=== PATIENT | male | born 1940 | race Caucasian/White ===

== ENCOUNTER 2019-03-23 13:09 | Inpatient (IN) | payer MEDICARE, OTHER ==
[~2019-03-23] VITALS: Ht 172.7 cm; Wt 80.7 kg
[~2019-03-23 13:09] MED LIST: ASPI-630 PO; CARV6.25 PO; CLOP75TA PO; COLC0.6T34 PO; HYDR-2761 PO; LEVO250T7 PO; LEVO500T8 PO; LISI1TAB5 PO; METH4TAB PO; METR500T PO; OMEP20TA8 PO; PRED1TAB3 PO; PRIM50TA PO; VIT1CAPS7 PO
[2019-03-23] MEDS ORDERED: ASPIRIN CHEWABLE 81 MG TABLET. PO ONE (14:15)
--- NOTE | 2019-03-23 14:16 | PHYS DOC ---
Past Medical History Past Medical History: High Cholesterol, Hypertension, Other Additional Past Medical Histor: TREMORS, STROKE x 2 (L side) Past Surgical History: Other Additional Past Surgical Histo: ABD SURGERY Alcohol Use: Rarely Drug Use: None Adult General Chief Complaint Chief Complaint: DIZZY/LIGHT HEADED HPI HPI Patient is a 78 year old male who presents with near-syncope. Patient states around 9 AM this morning that he started feeling extremely dizzy and having a weird tingling down his left arm that he describes as feeling goofy. Also had a headache that accompanied it. States that he has been having dizziness intermittently gets better with rest however this dizziness was severe enough that scared him. States he is in no pain at the moment. Did not take anything prior to arrival to help. Review of Systems Review of Systems Constitutional: Denies fever or chills [] Eyes: Denies change in visual acuity, redness, or eye pain [] HENT: Denies nasal congestion or sore throat [] Respiratory: Denies cough or shortness of breath [] Cardiovascular: Denies chest pain but reports dizziness. GI: Denies abdominal pain, nausea, vomiting, bloody stools or diarrhea [] : Denies dysuria or hematuria but reports urinary frequency. Musculoskeletal: Denies back pain or joint pain [] Integument: Denies rash or skin lesions [] Neurologic: Reports headache and denies focal weakness or sensory changes with the exception of tingling down left arm. Endocrine: Denies polyuria or polydipsia [] Complete systems were reviewed and found to be within normal limits, except as documented in this note. Current Medications Current Medications Current Medications Medications (Trade) Dose Ordered Sig/Lucy Start Time Stop Time Status Last Admin Dose Admin Aspirin (Children'S Aspirin) 324 mg 1X ONCE 03/23/19 14:15 03/23/19 14:16 DC 03/23/19 14:47 324 MG Sodium Chloride 500 ml @ 500 mls/hr 1X ONCE 03/23/19 14:30 03/23/19 15:29 DC 03/23/19 14:48 500 MLS/HR Allergies Allergies Allergies Coded Allergies Type Severity Reaction Last Updated Verified No Known Drug Allergies 10/20/18 No Physical Exam Physical Exam Constitutional: Well developed, well nourished, no acute distress, non-toxic appearance. [] HENT: Normocephalic, atraumatic, bilateral external ears normal, oropharynx moist, no oral exudates, nose normal. [] Eyes: PERRLA, EOMI, conjunctiva normal, no discharge. [] Neck: Normal range of motion, no tenderness, supple, no stridor. [] Cardiovascular:Heart rate regular rhythm, no murmur [] Lungs & Thorax: Bilateral breath sounds clear to auscultation [] Abdomen: Soft, no tenderness, no masses, no pulsatile masses. [] Skin: Warm, dry, no erythema, no rash. [] Back: No tenderness, no CVA tenderness. [] Extremities: No tenderness, no cyanosis, no clubbing, ROM intact, no edema. [] Neurologic: Alert and oriented X 3, no focal deficits noted. [] Psychologic: Affect normal, judgement normal, mood normal. [] Current Patient Data Vital Signs Vital Signs Date Time Temp Pulse Resp B/P (MAP) Pulse Ox O2 Delivery O2 Flow Rate FiO2 03/23/19 14:05 98.2 84 20 138/85 (102) 96 Room Air 98.2 Lab Values Laboratory Tests Test 03/23/19 14:10 White Blood Count 8.6 x10^3/uL (4.0-11.0) Red Blood Count 4.45 x10^6/uL (4.30-5.70) Hemoglobin 14.4 g/dL (13.0-17.5) Hematocrit 41.8 % (39.0-53.0) Mean Corpuscular Volume 94 fL (79-100) Mean Corpuscular Hemoglobin 32 pg (25-35) Mean Corpuscular Hemoglobin Concent 35 g/dL (31-37) Red Cell Distribution Width 13.3 % (11.5-14.5) Platelet Count 255 x10^3/uL (140-400) Neutrophils (%) (Auto) 64 % (31-73) Lymphocytes (%) (Auto) 26 % (24-48) Monocytes (%) (Auto) 7 % (0-9) Eosinophils (%) (Auto) 3 % (0-3) Basophils (%) (Auto) 1 % (0-3) Neutrophils # (Auto) 5.5 x10^3uL (1.8-7.7) Lymphocytes # (Auto) 2.2 x10^3/uL (1.0-4.8) Monocytes # (Auto) 0.6 x10^3/uL (0.0-1.1) Eosinophils # (Auto) 0.2 x10^3/uL (0.0-0.7) Basophils # (Auto) 0.1 x10^3/uL (0.0-0.2) Sodium Level 137 mmol/L (136-145) Potassium Level 4.1 mmol/L (3.5-5.1) Chloride Level 100 mmol/L (98-107) Carbon Dioxide Level 26 mmol/L (21-32) Anion Gap 11 (6-14) Blood Urea Nitrogen 20 mg/dL (8-26) Creatinine 1.5 mg/dL (0.7-1.3) H Estimated GFR (Cockcroft-Gault) 45.3 BUN/Creatinine Ratio 13 (6-20) Glucose Level 141 mg/dL (70-99) H Calcium Level 9.3 mg/dL (8.5-10.1) Magnesium Level 1.9 mg/dL (1.8-2.4) Total Bilirubin 0.6 mg/dL (0.2-1.0) Aspartate Amino Transferase (AST) 18 U/L (15-37) Alanine Aminotransferase (ALT) 22 U/L (16-63) Alkaline Phosphatase 109 U/L (46-116) Troponin I Quantitative < 0.017 ng/mL (0.000-0.055) Total Protein 7.3 g/dL (6.4-8.2) Albumin 4.0 g/dL (3.4-5.0) Albumin/Globulin Ratio 1.2 (1.0-1.7) Laboratory Tests 03/23/19 14:10 Laboratory Tests 03/23/19 14:10 EKG EKG Interpreted by Dr. Cecelia MD Sinus Rhythm with rate of 79. No STEMI[] Radiology/Procedures Radiology/Procedures []PATIENT: AIDA DICKERSON LACCOUNT: [id number]#: [id number] : 1940 LOCATION: ER AGE: 78 SEX: M EXAM STATUS: REG ER ORD. PHYSICIAN: JUDSON GR APRN REASON: dizziness PROCEDURE: CT HEAD WO CONTRAST CT HEAD WO CONTRAST History: Dizziness Comparison: October 20, 2018 Technique: Noncontrast CT imaging was performed of the head. Exposure: One or more of the following individualized dose reduction techniques were utilized for this examination: 1. Automated exposure control 2. Adjustment of the mA and/or kV according to patient size 3. Use of iterative reconstruction technique. Findings: No acute extra-axial or parenchymal hemorrhage is identified. There is no significant intra-axial mass effect, midline shift, or extra-axial fluid collection. The kirkland-white differentiation of the major vascular territories is preserved. Ventricular size is stable and proportionate to sulcal spaces. 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 There is mild ill-defined low-density such as near the left frontal horn unchanged. There is atherosclerotic calcification carotid siphons and intradural vertebral arteries as well as basilar artery. The mastoid air cells and the visualized paranasal sinuses are aerated. No acute calvarial abnormality is identified. Impression: 1. No acute intracranial abnormality is identified. 2. 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 Electronically signed by: Vlad Montero MD (03/23/2019 2:46 PM) [facility] PATIENT: AIDA DICKERSON ACCOUNT: [id number] : 1940 LOCATION: ER AGE: 78 SEX: M EXAM STATUS: REG ER ORD. PHYSICIAN: JUDSON GR APRN REASON: near syncope PROCEDURE: CHEST PA & LATERAL Chest, PA and Lateral: Technique: PA and lateral views of the chest were obtained. History: Near syncope. Comparison: 10/20/2018. Findings: The heart and pulmonary vasculature appear within normal limits. The lungs are clear. The pleural margins are clear. Impression: No acute chest process is seen. Electronically signed by: Deshaun Rowe MD (03/23/2019 2:59 PM) [facility] Course & Med Decision Making Course & Med Decision Making Pertinent Labs and Imaging studies reviewed. (See chart for details) Discussed signs and symptoms with patient. Will gets labs/urine, give fluid, and obtain CT of the Head, and Chest x-ray as well as EKG. Patient is agreeable. Work up is inconclusive. Labs are unremarkable as well as chest x-ray, Will talk to hospitalist about hospital admission. Hospitalist agrees to admission. Will admit to hospital. Dragon Disclaimer Dragon Disclaimer This electronic medical record was generated, in whole or in part, using a voice recognition dictation system. Departure Departure Impression: Primary Impression: Atypical chest pain Additional Impression: Dizziness Disposition: 09 ADMITTED INPATIENT Condition: STABLE Referrals: MARTY NG (PCP) Problem Qualifiers JUDSON GR APRN March 23, 2019 14:16
[2019-03-23 14:24] LABS: BASO # 0.1 x10^3/uL (0.0-0.2); BASO % 1 % (0-3); EOS # 0.2 x10^3/uL (0.0-0.7); EOS % 3 % (0-3); HEMATOCRIT 41.8 % (39.0-53.0); HEMOGLOBIN 14.4 g/dL (13.0-17.5); LYMPH # 2.2 x10^3/uL (1.0-4.8); LYMPH % 26 % (24-48); MEAN CORPUSCULAR HEMOGLOBIN 32 pg (25-35); MEAN CORPUSCULAR HGB CONC 35 g/dL (31-37); MEAN CORPUSCULAR VOLUME 94 fL (79-100); MONO # 0.6 x10^3/uL (0.0-1.1); MONO % 7 % (0-9); NEUT # 5.5 x10^3uL (1.8-7.7); NEUT % 64 % (31-73); PLATELET COUNT 255 x10^3/uL (140-400); RED BLOOD COUNT 4.45 x10^6/uL (4.30-5.70); RED CELL DISTRIBUTION WIDTH 13.3 % (11.5-14.5); WHITE BLOOD COUNT 8.6 x10^3/uL (4.0-11.0)
--- NOTE | 2019-03-23 14:25 | EKG ---
[facility] [address] [place] [address] Test Date: 2019-03-23 Test Time: 14:12:54 Pat Name: AIDA DICKERSON Department: Room: Gender: M Physician Surgeon: : 1940 Requested By: JUDSON GR Order Number: [id number] Reading MD: Rafael Lamas Measurements Intervals [place] Rate: 79 P: -59 NC: 154 QRS: -11 QRSD: 64 T: 16 QT: 370 QTc: 425 Interpretive Statements SINUS RHYTHM LEFTWARD AXIS QRS(T) CONTOUR ABNORMALITY CONSISTENT WITH INFERIOR INFARCT PROBABLY OLD ABNORMAL ECG Electronically Signed On 04-16-2019 11:48:37 CDT by Rafael Lamas
[2019-03-23] MEDS ORDERED: IV NORMAL SALINE 500ML BAG 500 ML IV ONE (14:30)
[2019-03-23 14:49] LABS: CALCIUM 9.3 mg/dL (8.5-10.1); CREATININE 1.5 mg/dL (0.7-1.3); GFR 45.3; POTASSIUM 4.1 mmol/L (3.5-5.1)
--- NOTE | 2019-03-23 14:49 | RAD ---
CT HEAD WO CONTRAST History: Dizziness Comparison: October 20, 2018 Technique: Noncontrast CT imaging was performed of the head. Exposure: One or more of the following individualized dose reduction techniques were utilized for this examination: 1. Automated exposure control 2. Adjustment of the mA and/or kV according to patient size 3. Use of iterative reconstruction technique. Findings: No acute extra-axial or parenchymal hemorrhage is identified. There is no significant intra-axial mass effect, midline shift, or extra-axial fluid collection. The kirkland-white differentiation of the major vascular territories is preserved. Ventricular size is stable and proportionate to sulcal spaces. 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 There is mild ill-defined low-density such as near the left frontal horn unchanged. There is atherosclerotic calcification carotid siphons and intradural vertebral arteries as well as basilar artery. The mastoid air cells and the visualized paranasal sinuses are aerated. No acute calvarial abnormality is identified. Impression: 1. No acute intracranial abnormality is identified. 2. 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 Electronically signed by: Vlad Montero MD (03/23/2019 2:46 PM) [facility]
[2019-03-23 14:56] LABS: ALBUMIN/GLOBULIN RATIO 1.2 (1.0-1.7); MAGNESIUM 1.9 mg/dL (1.8-2.4); TOTAL BILIRUBIN 0.6 mg/dL (0.2-1.0); TOTAL PROTEIN 7.3 g/dL (6.4-8.2)
--- NOTE | 2019-03-23 15:02 | RAD ---
Chest, PA and Lateral: Technique: PA and lateral views of the chest were obtained. History: Near syncope. Comparison: 10/20/2018. Findings: The heart and pulmonary vasculature appear within normal limits. The lungs are clear. The pleural margins are clear. Impression: No acute chest process is seen. Electronically signed by: Deshaun Rowe MD (03/23/2019 2:59 PM) [place] [id number]
[2019-03-23] MEDS ORDERED: NITROGLYCERIN SUBLINGUAL 0.4 MG BOTTLE OF 25. SL PRN (16:00)
[2019-03-23] MEDS ORDERED: ONDANSETRON PF 4 MG/2 ML VIAL. IV PRN (16:00)
[2019-03-23] MEDS ORDERED: MORPHINE SULFATE 2 MG/ML VIAL. IV PRN (16:00)
[2019-03-23 16:55] VITALS: BP 117/73
[2019-03-23 17:00] VITALS: BP 125/68
[2019-03-23 17:04] VITALS: BP 92/59
--- NOTE | 2019-03-23 17:59 | PDOC1 ---
History and Physical Date of Admission Date of Admission DATE: 03/23/19 TIME: 17:53 History of Present Illness History of Present Illness MR. Ahmadi is a 78 year old male admt from with near-syncope. 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 He would maybe say the left arm was heavy or weak Also had a headache that accompanied it. 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 Past Medical History Cardiovascular: HTN CENTRAL NERVOUS SYSTEM: CVA GI: GERD, Other Past Surgical History Past Surgical History: Cholecystectomy, Other Family History Family History: No Significant Social History Smoke: Quit (cl[place] 2001) ALCOHOL: none Drugs: None Current Problem List Problem List Problems Medical Problems: (1) Atypical chest pain Status: Acute (2) Dizziness Status: Acute Current Medications Current Medications Current Medications Aspirin (Children'S Aspirin) 324 mg 1X ONCE PO Last administered on 03/23/19at 14:47; Start 03/23/19 at 14:15; Stop 03/23/19 at 14:16; Status DC Sodium Chloride 500 ml @ 500 mls/hr 1X ONCE IV Last administered on 03/23/19at 14:48; Start 03/23/19 at 14:30; Stop 03/23/19 at 15:29; Status DC Ondansetron HCl (Zofran) 4 mg PRN Q8HRS PRN IV NAUSEA/VOMITING; Start 03/23/19 at 16:00; Stop 03/24/19 at 15:59 Morphine Sulfate (Morphine Sulfate) 2 mg PRN Q2HR PRN IV PAIN; Start 03/23/19 at 16:00; Stop 03/24/19 at 15:59 Nitroglycerin (Nitrostat) 0.4 mg PRN Q5MIN PRN SL CHEST PAIN; Start 03/23/19 at 16:00; Stop 03/24/19 at 15:59 Active Scripts Active Clopidogrel (Clopidogrel Bisulfate) 75 Mg Tablet 75 Mg PO DAILYWBKFT MDD 1 Colcrys (Colchicine) 0.6 Mg Tablet 1 Tab PO DAILY Medrol (Methylprednisolone) 4 Mg Tablet 7 Cap PO UD Reported Aspirin 81 Mg Tab.chew 1 Tab PO DAILY Primidone 50 Mg Tablet 150 Mg PO DAILY Tart Sanders Capsule (Vit C/Sanders & Celery Ex/Grp E) 1 Each Capsule 2 Each PO DAILY Omeprazole 20 Mg Tablet.dr 1 Tab PO DAILY Lisinopril-Hctz 20-12.5 Mg Tab (Lisinopril/Hydrochlorothiazide) 1 Each Tablet 1 Tab PO DAILY Coreg (Carvedilol) 6.25 Mg Tablet 6.25 Mg PO BIDWMEALS Prednisone 1 Mg Tablet 4 Tab PO DAILY Allergies Allergies: Coded Allergies: No Known Drug Allergies (Unverified , 10/20/18) ROS General: No: Chills, Night Sweats, Fatigue, Malaise, Appetite, Other PSYCHOLOGICAL ROS: No: Anxiety, Behavioral Disorder, Concentration difficultie, Decreased libido, Depression, Disorientation, Hallucinations, Hostility, Irritablity, Memory difficulties, Mood Swings, Obsessive thoughts, Physical abuse, Sexual abuse, Sleep disturbances, Suicidal ideation, Other Eyes: No Blurry vision, No Decreased vision, No Double vision, No Dry eyes, No Excessive tearing, No Eye Pain, No Itchy Eyes, No Loss of vision, No Photophobia, No Scotomata, No Uses contacts, No Uses glasses, No Other HEENT: No: Heacaches, Visual Changes, Hearing change, Nasal congestion, Nasal discharge, Oral lesions, Sinus pain, Sore Throat, Epistaxis, Sneezing, Snoring, Tinnitus, Vertigo, Vocal changes, Other Respiratory: No: Cough, Hemoptysis, Orthopnea, Pleuritic Pain, Shortness of breath, SOB with excertion, Sputum Changes, Stridor, Tachypnea, Wheezing, Other Cardiovascular: No Chest Pain, No Palpitations, No Orthopnea, No Paroxysmal Noc. Dyspnea, No Edema, No Lt Headedness, No Other Gastrointestinal: No Nausea, No Vomiting, No Abdominal Pain, No Diarrhea, No Constipation, No Melena, No Hematochezia, No Other Genitourinary: No Dysuria, No Frequency, No Incontinence, No Hematuria, No Rete ntion, No Discharge, No Urgency, No Pain, No Flank Pain, No Other, No , No , No , No , No , No , No Musculoskeletal: Yes Muscular Weakness (left ); No Gait Disturbance, No Joint Pain, No Joint Stiffness, No Joint Swelling, No Muscle Pain, No Pain In:, No Swelling In:, No Other Neurological: No Behavorial Changes, No Bowel/Bladder ControlChng, No Confusion, No Dizziness, No Gait Disturbance, No Headaches, No Impaired Coord/balance, No Memory Loss, No Numbness/Tingling, No Seizures, No Speech Problems, No Tremors, No Visual Changes, No Weakness, No Other Skin: Yes Dry Skin; No Eczema, No Hair Changes, No Lumps, No Mole Changes, No Mottling, No Nail Changes, No Pruritus, No Rash, No Skin Lesion Changes, No Other, No Acne Physical Exam General: Alert, Oriented X3, No acute distress HEENT: Atraumatic, PERRLA, Mucous membr. moist/pink Lungs: Clear to auscultation, Normal air movement Heart: no gallops, no murmurs Extremities: No edema, Normal pulses Skin: No significant lesion Neuro: Normal speech, Sensation intact, Other (brisk left reflexes, normal right) Psych/Mental Status: Mental status NL, Mood NL Vitals Vitals Vital Signs Date Time Temp Pulse Resp B/P (MAP) Pulse Ox O2 Delivery O2 Flow Rate FiO2 03/23/19 16:00 62 20 95 03/23/19 14:05 98.2 138/85 (102) Room Air 98.2 Labs Labs Laboratory Tests Test 03/23/19 14:10 White Blood Count 8.6 x10^3/uL (4.0-11.0) Red Blood Count 4.45 x10^6/uL (4.30-5.70) Hemoglobin 14.4 g/dL (13.0-17.5) Hematocrit 41.8 % (39.0-53.0) Mean Corpuscular Volume 94 fL (79-100) Mean Corpuscular Hemoglobin 32 pg (25-35) Mean Corpuscular Hemoglobin Concent 35 g/dL (31-37) Red Cell Distribution Width 13.3 % (11.5-14.5) Platelet Count 255 x10^3/uL (140-400) Neutrophils (%) (Auto) 64 % (31-73) Lymphocytes (%) (Auto) 26 % (24-48) Monocytes (%) (Auto) 7 % (0-9) Eosinophils (%) (Auto) 3 % (0-3) Basophils (%) (Auto) 1 % (0-3) Neutrophils # (Auto) 5.5 x10^3uL (1.8-7.7) Lymphocytes # (Auto) 2.2 x10^3/uL (1.0-4.8) Monocytes # (Auto) 0.6 x10^3/uL (0.0-1.1) Eosinophils # (Auto) 0.2 x10^3/uL (0.0-0.7) Basophils # (Auto) 0.1 x10^3/uL (0.0-0.2) Sodium Level 137 mmol/L (136-145) Potassium Level 4.1 mmol/L (3.5-5.1) Chloride Level 100 mmol/L (98-107) Carbon Dioxide Level 26 mmol/L (21-32) Anion Gap 11 (6-14) Blood Urea Nitrogen 20 mg/dL (8-26) Creatinine 1.5 mg/dL (0.7-1.3) Estimated GFR (Cockcroft-Gault) 45.3 BUN/Creatinine Ratio 13 (6-20) Glucose Level 141 mg/dL (70-99) Calcium Level 9.3 mg/dL (8.5-10.1) Magnesium Level 1.9 mg/dL (1.8-2.4) Total Bilirubin 0.6 mg/dL (0.2-1.0) Aspartate Amino Transf (AST/SGOT) 18 U/L (15-37) Alanine Aminotransferase (ALT/SGPT) 22 U/L (16-63) Alkaline Phosphatase 109 U/L (46-116) Troponin I Quantitative < 0.017 ng/mL (0.000-0.055) Total Protein 7.3 g/dL (6.4-8.2) Albumin 4.0 g/dL (3.4-5.0) Albumin/Globulin Ratio 1.2 (1.0-1.7) Laboratory Tests Test 03/23/19 14:10 White Blood Count 8.6 x10^3/uL (4.0-11.0) Red Blood Count 4.45 x10^6/uL (4.30-5.70) Hemoglobin 14.4 g/dL (13.0-17.5) Hematocrit 41.8 % (39.0-53.0) Mean Corpuscular Volume 94 fL (79-100) Mean Corpuscular Hemoglobin 32 pg (25-35) Mean Corpuscular Hemoglobin Concent 35 g/dL (31-37) Red Cell Distribution Width 13.3 % (11.5-14.5) Platelet Count 255 x10^3/uL (140-400) Neutrophils (%) (Auto) 64 % (31-73) Lymphocytes (%) (Auto) 26 % (24-48) Monocytes (%) (Auto) 7 % (0-9) Eosinophils (%) (Auto) 3 % (0-3) Basophils (%) (Auto) 1 % (0-3) Neutrophils # (Auto) 5.5 x10^3uL (1.8-7.7) Lymphocytes # (Auto) 2.2 x10^3/uL (1.0-4.8) Monocytes # (Auto) 0.6 x10^3/uL (0.0-1.1) Eosinophils # (Auto) 0.2 x10^3/uL (0.0-0.7) Basophils # (Auto) 0.1 x10^3/uL (0.0-0.2) Sodium Level 137 mmol/L (136-145) Potassium Level 4.1 mmol/L (3.5-5.1) Chloride Level 100 mmol/L (98-107) Carbon Dioxide Level 26 mmol/L (21-32) Anion Gap 11 (6-14) Blood Urea Nitrogen 20 mg/dL (8-26) Creatinine 1.5 mg/dL (0.7-1.3) Estimated GFR (Cockcroft-Gault) 45.3 BUN/Creatinine Ratio 13 (6-20) Glucose Level 141 mg/dL (70-99) Calcium Level 9.3 mg/dL (8.5-10.1) Magnesium Level 1.9 mg/dL (1.8-2.4) Total Bilirubin 0.6 mg/dL (0.2-1.0) Aspartate Amino Transf (AST/SGOT) 18 U/L (15-37) Alanine Aminotransferase (ALT/SGPT) 22 U/L (16-63) Alkaline Phosphatase 109 U/L (46-116) Troponin I Quantitative < 0.017 ng/mL (0.000-0.055) Total Protein 7.3 g/dL (6.4-8.2) Albumin 4.0 g/dL (3.4-5.0) Albumin/Globulin Ratio 1.2 (1.0-1.7) VTE Prophylaxis Ordered VTE Prophylaxis Devices: Yes VTE Pharmacological Prophylaxi: Yes Assessment/Plan Assessment/Plan presyncope, - tele obs TIA orthostatic hypotension hx CVA with residual hemiparesis admit, obs PT and OT CRISTIAN ESTEVEZ MD March 23, 2019 17:59
[2019-03-23 19:00] VITALS: BP 109/65
[2019-03-23] MEDS: LISINOPRIL 20 MG TABLET PO SCH (19:00)
[2019-03-23] MEDS: hydroCHLOROthiazide 12.5 MG CAPSULE PO SCH (19:00)
--- NOTE | 2019-03-23 19:11 | PDOC2 ---
NEUROLOGY CONSULT Date of Admission Date of Admission DATE: 03/23/19 TIME: 19:00 Reason for Consult Reason for Consult: IMPRESSION: CVA syndrome. Left side face, tongue, UE and LE numbness. Dizziness and light headiness. Headache. HTN. HLD. 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 Tremor, chronic. RECOMMENDATIONS/PLAN: Continue Plavix 75 mg daily. Continue ASA 81 mg daily. Brain MRI w/o contrast. Lab: see orders, including lipid panel. Ortho HR and BP. HISTORY OF THE PRESENT ILLNESS: This is a 78 -year-old male patient with above medical diseases and a stroke 7 years ago affected his left side but recovered then. He stated around 9 AM this morning that he started feeling extremely dizzy after got up, he also felt numbness in his tongue and left side of face and UE and LE. He lied down for about 30 minutes and his symptoms of dizziness improved, but he still had numbness in his left hand so far after 10 hours. He felt very week when standing, Past Medical History Cardiovascular: HTN CENTRAL NERVOUS SYSTEM: CVA GI: GERD, Other Past Surgical History Cholecystectomy. Family History No Significant Social History Smoke: Quit ([place] 2001) ALCOHOL: none Drugs: None ALLERGY: Unknown MEDICATIONS: Refer to MAR REVIEW OF SYSTEMS: Constitutional: No malnutrition, weight loss, cachexia. Head: No traumatic brain or head injury. Skin: No edema, or rash. Ear: No infection. Eyes: No vision loss or color blindness. Nose: No bleeding or purulent discharges. Hearing: Hearing decrease. Neck: No injury. Cardiac: HTN. Pulmonary: No COPD. GI: No GI ulcer, GI bleeding. Urinary/genital: UTI. Endocrinologic: No cousin face, craniofacial dysmorphism, polydactyly. Skeletomuscular: Generalized weakness. Neurological: see HP. Psychiatric: Denies drug use/abuse. Otherwise, not [id number] review of systems. PHYSICAL EXAMINATION: General appearance is in subacute distress. HEENT: Normocephalic and nontraumatic. Eyes, nose, ears, and throat are unremarkable. Neck is supple. No lymphadenopathy. No crepitus. Cardiovascular: S1, S2, regular rate and rhythm. Pulmonary: Clear to auscultation bilaterally. Abdomen: Bowel sounds are positive. Abdomen is soft, nontender, and nondistended. Extremities: No rash, lesions, or edema. No restriction of range of motion NEUROLOGICAL EXAMINATION: Alert Oriented to time, place and person. PERRL. EOMI. CN: no focal findings. Muscle tone: within normal. Muscle strength: 4+ left UE and LE, 5 right side. DTR: 1-2 Plantar reflex: Flexor response bilaterally Gait: not examined in bed. Sensory exam: no abnormal findings. No cerebellar signs elicited. F-T-N test fine. Current Medications Current Medications Current Medications Aspirin (Children'S Aspirin) 324 mg 1X ONCE PO Last administered on 03/23/19at 14:47; Start 03/23/19 at 14:15; Stop 03/23/19 at 14:16; Status DC Sodium Chloride 500 ml @ 500 mls/hr 1X ONCE IV Last administered on 03/23/19at 14:48; Start 03/23/19 at 14:30; Stop 03/23/19 at 15:29; Status DC Ondansetron HCl (Zofran) 4 mg PRN Q8HRS PRN IV NAUSEA/VOMITING; Start 03/23/19 at 16:00; Stop 03/24/19 at 15:59 Morphine Sulfate (Morphine Sulfate) 2 mg PRN Q2HR PRN IV PAIN; Start 03/23/19 at 16:00; Stop 03/24/19 at 15:59 Nitroglycerin (Nitrostat) 0.4 mg PRN Q5MIN PRN SL CHEST PAIN; Start 03/23/19 at 16:00; Stop 03/24/19 at 15:59 Enoxaparin Sodium (Lovenox Per Pharmacy Prophylaxis Dosing) 1 each PRN DAILY PRN MC SEE COMMENTS; Start 03/23/19 at 18:00 Fludrocortisone Acetate (Florinef) 0.1 mg DAILY PO ; Start 03/23/19 at 19:00 Aspirin (Children'S Aspirin) 81 mg DAILY PO ; Start 03/23/19 at 19:00 Carvedilol (Coreg) 6.25 mg BIDWMEALS PO ; Start 03/23/19 at 19:00 Clopidogrel Bisulfate (Plavix) 75 mg DAILYWBKFT PO ; Start 03/23/19 at 19:00 Colchicine (Colcrys) 0.3 mg DAILY PO ; Start 03/24/19 at 09:00 Prednisone (Prednisone) 4 mg DAILY PO ; Start 03/23/19 at 19:00 Lisinopril (Prinivil) 20 mg DAILY PO ; Start 03/23/19 at 19:00 Pantoprazole Sodium (Protonix) 40 mg DAILYAC PO ; Start 03/24/19 at 07:30 Primidone (Mysoline) 150 mg DAILY PO ; Start 03/23/19 at 19:00 Enoxaparin Sodium (Lovenox 40mg Syringe) 40 mg Q24H SQ ; Start 03/23/19 at 21:00 Hydrochlorothiazide (Microzide) 12.5 mg DAILY PO ; Start 03/23/19 at 19:00 Active Scripts Active Clopidogrel (Clopidogrel Bisulfate) 75 Mg Tablet 75 Mg PO DAILYWBKFT MDD 1 Colcrys (Colchicine) 0.6 Mg Tablet 1 Tab PO DAILY Medrol (Methylprednisolone) 4 Mg Tablet 7 Cap PO UD Reported Aspirin 81 Mg Tab.chew 1 Tab PO DAILY Primidone 50 Mg Tablet 150 Mg PO DAILY Tart Sanders Capsule (Vit C/Sanders & Celery Ex/Grp E) 1 Each Capsule 2 Each PO DAILY Omeprazole 20 Mg Tablet.dr 1 Tab PO DAILY Lisinopril-Hctz 20-12.5 Mg Tab (Lisinopril/Hydrochlorothiazide) 1 Each Tablet 1 Tab PO DAILY Coreg (Carvedilol) 6.25 Mg Tablet 6.25 Mg PO BIDWMEALS Prednisone 1 Mg Tablet 4 Tab PO DAILY Allergies Allergies: Allergies Coded Allergies Type Severity Reaction Last Updated Verified No Known Drug Allergies 10/20/18 No ROS Review of System The patient denies any associated fevers, chills, headache, ear pain, rhinorrhea, sore throat, stiff neck, productive cough, chest pain, shortness of breath, back or flank pain, abdominal pain, nausea, vomiting, diarrhea, constipation, dysuria, rash, numbness, weakness, tingling, incontinence, difficulty ambulating, or diaphoresis. Physical Exam Physical Exam General: Well developed, well nourished, no acute distress, well appearing HEENT: Pupils equally round and reactive to light, EOMI, no discharge, normal conjunctiva Neck: Supple, no nuchal rigidity, no JVD, trachea midline, no tenderness Cardiac: RRR, no murmurs, no gallops, no rubs Chest/Lungs: CTAB, no wheeze, no rhonchi, no crackles Abdomen: soft, non-distended, no guarding, no peritoneal signs, non-tender Back: No tenderness Extremities: no edema, pulses intact, non-tender,capillary refill <3 sec bilateral upper and lower extremities, Neuro: Alert and oriented x 4, no focal deficits, normal speech Vitals Vitals: Vital Signs Date Time Temp Pulse Resp B/P (MAP) Pulse Ox O2 Delivery O2 Flow Rate FiO2 03/23/19 18:02 Room Air 03/23/19 17:04 79 92/59 (70) 98 03/23/19 16:55 97.7 19 97.7 Labs Labs Laboratory Tests Test 03/23/19 14:10 White Blood Count 8.6 x10^3/uL (4.0-11.0) Red Blood Count 4.45 x10^6/uL (4.30-5.70) Hemoglobin 14.4 g/dL (13.0-17.5) Hematocrit 41.8 % (39.0-53.0) Mean Corpuscular Volume 94 fL (79-100) Mean Corpuscular Hemoglobin 32 pg (25-35) Mean Corpuscular Hemoglobin Concent 35 g/dL (31-37) Red Cell Distribution Width 13.3 % (11.5-14.5) Platelet Count 255 x10^3/uL (140-400) Neutrophils (%) (Auto) 64 % (31-73) Lymphocytes (%) (Auto) 26 % (24-48) Monocytes (%) (Auto) 7 % (0-9) Eosinophils (%) (Auto) 3 % (0-3) Basophils (%) (Auto) 1 % (0-3) Neutrophils # (Auto) 5.5 x10^3uL (1.8-7.7) Lymphocytes # (Auto) 2.2 x10^3/uL (1.0-4.8) Monocytes # (Auto) 0.6 x10^3/uL (0.0-1.1) Eosinophils # (Auto) 0.2 x10^3/uL (0.0-0.7) Basophils # (Auto) 0.1 x10^3/uL (0.0-0.2) Sodium Level 137 mmol/L (136-145) Potassium Level 4.1 mmol/L (3.5-5.1) Chloride Level 100 mmol/L (98-107) Carbon Dioxide Level 26 mmol/L (21-32) Anion Gap 11 (6-14) Blood Urea Nitrogen 20 mg/dL (8-26) Creatinine 1.5 mg/dL (0.7-1.3) Estimated GFR (Cockcroft-Gault) 45.3 BUN/Creatinine Ratio 13 (6-20) Glucose Level 141 mg/dL (70-99) Calcium Level 9.3 mg/dL (8.5-10.1) Magnesium Level 1.9 mg/dL (1.8-2.4) Total Bilirubin 0.6 mg/dL (0.2-1.0) Aspartate Amino Transf (AST/SGOT) 18 U/L (15-37) Alanine Aminotransferase (ALT/SGPT) 22 U/L (16-63) Alkaline Phosphatase 109 U/L (46-116) Troponin I Quantitative < 0.017 ng/mL (0.000-0.055) Total Protein 7.3 g/dL (6.4-8.2) Albumin 4.0 g/dL (3.4-5.0) Albumin/Globulin Ratio 1.2 (1.0-1.7) Laboratory Tests Test 03/23/19 14:10 White Blood Count 8.6 x10^3/uL (4.0-11.0) Red Blood Count 4.45 x10^6/uL (4.30-5.70) Hemoglobin 14.4 g/dL (13.0-17.5) Hematocrit 41.8 % (39.0-53.0) Mean Corpuscular Volume 94 fL (79-100) Mean Corpuscular Hemoglobin 32 pg (25-35) Mean Corpuscular Hemoglobin Concent 35 g/dL (31-37) Red Cell Distribution Width 13.3 % (11.5-14.5) Platelet Count 255 x10^3/uL (140-400) Neutrophils (%) (Auto) 64 % (31-73) Lymphocytes (%) (Auto) 26 % (24-48) Monocytes (%) (Auto) 7 % (0-9) Eosinophils (%) (Auto) 3 % (0-3) Basophils (%) (Auto) 1 % (0-3) Neutrophils # (Auto) 5.5 x10^3uL (1.8-7.7) Lymphocytes # (Auto) 2.2 x10^3/uL (1.0-4.8) Monocytes # (Auto) 0.6 x10^3/uL (0.0-1.1) Eosinophils # (Auto) 0.2 x10^3/uL (0.0-0.7) Basophils # (Auto) 0.1 x10^3/uL (0.0-0.2) Sodium Level 137 mmol/L (136-145) Potassium Level 4.1 mmol/L (3.5-5.1) Chloride Level 100 mmol/L (98-107) Carbon Dioxide Level 26 mmol/L (21-32) Anion Gap 11 (6-14) Blood Urea Nitrogen 20 mg/dL (8-26) Creatinine 1.5 mg/dL (0.7-1.3) Estimated GFR (Cockcroft-Gault) 45.3 BUN/Creatinine Ratio 13 (6-20) Glucose Level 141 mg/dL (70-99) Calcium Level 9.3 mg/dL (8.5-10.1) Magnesium Level 1.9 mg/dL (1.8-2.4) Total Bilirubin 0.6 mg/dL (0.2-1.0) Aspartate Amino Transf (AST/SGOT) 18 U/L (15-37) Alanine Aminotransferase (ALT/SGPT) 22 U/L (16-63) Alkaline Phosphatase 109 U/L (46-116) Troponin I Quantitative < 0.017 ng/mL (0.000-0.055) Total Protein 7.3 g/dL (6.4-8.2) Albumin 4.0 g/dL (3.4-5.0) Albumin/Globulin Ratio 1.2 (1.0-1.7) KARLOS CAMARA MD March 23, 2019 19:11
[2019-03-23] MEDS: ASPIRIN CHEWABLE 81 MG TABLET. PO SCH (20:24)
[2019-03-23] MEDS: CLOPIDOGREL BISULFATE 75 MG TABLET PO SCH (20:25)
[2019-03-23] MEDS: FLUDROCORTISONE 0.1 MG TABLET PO SCH (20:25)
[2019-03-23] MEDS: PRIMIDONE 50 MG TABLET PO SCH (20:25)
[2019-03-23] MEDS: predniSONE 1 MG TABLET PO SCH (20:26)
[2019-03-23] MEDS: CARVEDILOL 6.25 MG TABLET. PO SCH (20:27)
[2019-03-23] MEDS: ENOXAPARIN 40 MG/0.4 ML SYRINGE. SQ SCH (21:00)
[2019-03-23 23:00] VITALS: BP 114/59
[2019-03-24] VITALS (8 sets, daily range): BP systolic 105–132; BP diastolic 54–79
[2019-03-24 05:06] LABS: BASO % 1 % (0-3); EOS # 0.2 x10^3/uL (0.0-0.7); EOS % 3 % (0-3); HEMATOCRIT 37.5 % (39.0-53.0); HEMOGLOBIN 12.9 g/dL (13.0-17.5); LYMPH # 1.5 x10^3/uL (1.0-4.8); LYMPH % 22 % (24-48); MEAN CORPUSCULAR HEMOGLOBIN 32 pg (25-35); MEAN CORPUSCULAR HGB CONC 34 g/dL (31-37); MEAN CORPUSCULAR VOLUME 93 fL (79-100); MONO # 0.5 x10^3/uL (0.0-1.1); MONO % 7 % (0-9); NEUT # 4.7 x10^3uL (1.8-7.7); NEUT % 67 % (31-73); PLATELET COUNT 215 x10^3/uL (140-400); RED BLOOD COUNT 4.02 x10^6/uL (4.30-5.70); RED CELL DISTRIBUTION WIDTH 13.5 % (11.5-14.5); WHITE BLOOD COUNT 6.9 x10^3/uL (4.0-11.0)
[2019-03-24 05:20] LABS: ALBUMIN 3.4 g/dL (3.4-5.0); ALBUMIN/GLOBULIN RATIO 1.2 (1.0-1.7); CALCIUM 8.8 mg/dL (8.5-10.1); CREATININE 1.4 mg/dL (0.7-1.3); POTASSIUM 3.9 mmol/L (3.5-5.1); TOTAL BILIRUBIN 0.5 mg/dL (0.2-1.0); TOTAL PROTEIN 6.2 g/dL (6.4-8.2)
[2019-03-24 05:21] LABS: CHOLESTEROL/HDL RATIO 4.1
[2019-03-24] MEDS: CARVEDILOL 6.25 MG TABLET. PO SCH (08:00)
[2019-03-24] MEDS: PRIMIDONE 50 MG TABLET PO SCH (08:11)
[2019-03-24] MEDS: FLUDROCORTISONE 0.1 MG TABLET PO SCH (08:11)
[2019-03-24] MEDS: COLCHICINE 0.6 MG TABLET PO SCH (08:11)
[2019-03-24] MEDS: ASPIRIN CHEWABLE 81 MG TABLET. PO SCH (08:12)
[2019-03-24] MEDS: PANTOPRAZOLE 40 MG TABLET.DR. PO SCH (08:12)
[2019-03-24] MEDS: CLOPIDOGREL BISULFATE 75 MG TABLET PO SCH (08:12)
[2019-03-24] MEDS: hydroCHLOROthiazide 12.5 MG CAPSULE PO SCH (08:49)
[2019-03-24] MEDS: LISINOPRIL 20 MG TABLET PO SCH (08:50)
--- NOTE | 2019-03-24 08:57 | PDOC2 ---
DIANA CHAPPELL EDWINA 03/24/19 0857: CARDIAC CONSULT DATE OF CONSULT Date of Consult DATE: 03/24/19 TIME: 08:52 REASON FOR CONSULT Reason for Consult: Dizziness REFERRING PHYSICIAN Referring Physician: Carlos Bazan APRN SOURCE Source: Chart review, Patient HISTORY OF PRESENT ILLNESS HISTORY OF PRESENT ILLNESS This is a 78 yo male, with a history of CVA with left chronic sided tingling, who presented secondary to dizziness, near syncopal episode. Patient report experiencing intermittent dizziness for the last couple of weeks, mostly when he stands up. Yesterday, was up walking in his bedroom and became significantly dizzy. His left arm felt "a little funny". Thought was was going to "blackout" so he laid down in bed. Rested for about 30 minutes and felt a little better. Got up and took a shower and continued to be slightly dizzy so he decided to come to the ED for further evaluation and treatment. Blood pressure has been on the low side since admission. On Coreg 6.25mg BID and lisinopril/HCTZ 20/12.5mg at home. No recent weight loss, fevers, illness. No chest pain, palpitations, SOA, or nausea/vomiting. Reports compliance with medications. PAST MEDICAL HISTORY Cardiovascular: HTN, Hyperlipidemia CENTRAL NERVOUS SYSTEM: CVA GI: GERD, Other (Pastor's Esophagus ) Heme/Onc: No pertinent hx Hepatobiliary: No pertinent hx Psych: No pertinent hx Musculoskeletal: Osteoarthritis Rheumatologic: Gout Infectious disease: No pertinent hx ENT: No pertinent hx Renal/: No pertinent hx Endocrine: No pertinent hx Dermatology: No pertinent hx PAST SURGICAL HISTORY Past Surgical History: Cholecystectomy, Hernia Repair, Colon Resection FAMILY HISTORY Family History: Diabetes SOCIAL HISTORY Smoke: Quit (Chewed- quit 2001) ALCOHOL: none Drugs: None Lives: with Family CURRENT MEDICATIONS CURRENT MEDICATIONS Current Medications Medications (Trade) Dose Ordered Sig/Lucy Route PRN Reason Start Time Stop Time Status Last Admin Dose Admin Aspirin (Children'S Aspirin) 324 mg 1X ONCE PO 03/23/19 14:15 03/23/19 14:16 DC 03/23/19 14:47 Sodium Chloride 500 ml @ 500 mls/hr 1X ONCE IV 03/23/19 14:30 03/23/19 15:29 DC 03/23/19 14:48 Fludrocortisone Acetate (Florinef) 0.1 mg DAILY PO 03/23/19 19:00 03/24/19 08:11 Aspirin (Children'S Aspirin) 81 mg DAILY PO 03/23/19 19:00 03/24/19 08:12 Carvedilol (Coreg) 6.25 mg BIDWMEALS PO 03/23/19 19:00 03/23/19 20:27 Clopidogrel Bisulfate (Plavix) 75 mg DAILYWBKFT PO 03/23/19 19:00 03/24/19 08:12 Colchicine (Colcrys) 0.3 mg DAILY PO 03/24/19 09:00 03/24/19 08:11 Prednisone (Prednisone) 4 mg DAILY PO 03/23/19 19:00 03/23/19 20:26 Pantoprazole Sodium (Protonix) 40 mg DAILYAC PO 03/24/19 07:30 03/24/19 08:12 Primidone (Mysoline) 150 mg DAILY PO 03/23/19 19:00 03/24/19 08:11 ALLERGIES ALLERGIES: Coded Allergies: No Known Drug Allergies (Unverified , 10/20/18) ROS Review of System 14 point ROS conducted with pertinent positives noted above in HPI. PHYSICAL EXAM General: Alert, Oriented X3, Cooperative HEENT: Atraumatic Lungs: Clear to auscultation, Normal air movement Heart: Regular rate, Normal S1, Normal S2, Other (2/6 systolic murmur ) Abdomen: Soft, No tenderness Extremities: No edema, Normal pulses Skin: No significant lesion Neuro: Normal speech, Sensation intact Psych/Mental Status: Mental status NL, Mood NL MUSCULOSKELETAL: Osteoarthritic changes both hands VITALS VITALS Vital Signs Date Time Temp Pulse Resp B/P (MAP) Pulse Ox O2 Delivery O2 Flow Rate FiO2 03/24/19 08:50 63 112/67 03/24/19 07:00 97.6 16 97 Room Air 97.6 LABS Lab: Laboratory Tests Test 03/23/19 14:10 03/24/19 04:15 White Blood Count 8.6 x10^3/uL (4.0-11.0) 6.9 x10^3/uL (4.0-11.0) Red Blood Count 4.45 x10^6/uL (4.30-5.70) 4.02 x10^6/uL (4.30-5.70) Hemoglobin 14.4 g/dL (13.0-17.5) 12.9 g/dL (13.0-17.5) Hematocrit 41.8 % (39.0-53.0) 37.5 % (39.0-53.0) Mean Corpuscular Volume 94 fL (79-100) 93 fL (79-100) Mean Corpuscular Hemoglobin 32 pg (25-35) 32 pg (25-35) Mean Corpuscular Hemoglobin Concent 35 g/dL (31-37) 34 g/dL (31-37) Red Cell Distribution Width 13.3 % (11.5-14.5) 13.5 % (11.5-14.5) Platelet Count 255 x10^3/uL (140-400) 215 x10^3/uL (140-400) Neutrophils (%) (Auto) 64 % (31-73) 67 % (31-73) Lymphocytes (%) (Auto) 26 % (24-48) 22 % (24-48) Monocytes (%) (Auto) 7 % (0-9) 7 % (0-9) Eosinophils (%) (Auto) 3 % (0-3) 3 % (0-3) Basophils (%) (Auto) 1 % (0-3) 1 % (0-3) Neutrophils # (Auto) 5.5 x10^3uL (1.8-7.7) 4.7 x10^3uL (1.8-7.7) Lymphocytes # (Auto) 2.2 x10^3/uL (1.0-4.8) 1.5 x10^3/uL (1.0-4.8) Monocytes # (Auto) 0.6 x10^3/uL (0.0-1.1) 0.5 x10^3/uL (0.0-1.1) Eosinophils # (Auto) 0.2 x10^3/uL (0.0-0.7) 0.2 x10^3/uL (0.0-0.7) Basophils # (Auto) 0.1 x10^3/uL (0.0-0.2) 0.0 x10^3/uL (0.0-0.2) Sodium Level 137 mmol/L (136-145) 138 mmol/L (136-145) Potassium Level 4.1 mmol/L (3.5-5.1) 3.9 mmol/L (3.5-5.1) Chloride Level 100 mmol/L (98-107) 101 mmol/L (98-107) Carbon Dioxide Level 26 mmol/L (21-32) 25 mmol/L (21-32) Anion Gap 11 (6-14) 12 (6-14) Blood Urea Nitrogen 20 mg/dL (8-26) 19 mg/dL (8-26) Creatinine 1.5 mg/dL (0.7-1.3) 1.4 mg/dL (0.7-1.3) Estimated GFR (Cockcroft-Gault) 45.3 49.0 BUN/Creatinine Ratio 13 (6-20) 14 (6-20) Glucose Level 141 mg/dL (70-99) 147 mg/dL (70-99) Calcium Level 9.3 mg/dL (8.5-10.1) 8.8 mg/dL (8.5-10.1) Magnesium Level 1.9 mg/dL (1.8-2.4) Total Bilirubin 0.6 mg/dL (0.2-1.0) 0.5 mg/dL (0.2-1.0) Aspartate Amino Transf (AST/SGOT) 18 U/L (15-37) 12 U/L (15-37) Alanine Aminotransferase (ALT/SGPT) 22 U/L (16-63) 18 U/L (16-63) Alkaline Phosphatase 109 U/L (46-116) 90 U/L (46-116) Troponin I Quantitative < 0.017 ng/mL (0.000-0.055) Total Protein 7.3 g/dL (6.4-8.2) 6.2 g/dL (6.4-8.2) Albumin 4.0 g/dL (3.4-5.0) 3.4 g/dL (3.4-5.0) Albumin/Globulin Ratio 1.2 (1.0-1.7) 1.2 (1.0-1.7) Triglycerides Level 172 mg/dL (0-150) Cholesterol Level 142 mg/dL (0-200) LDL Cholesterol, Calculated 73 mg/dL (0-100) VLDL Cholesterol, Calculated 34 mg/dL (0-40) Non-HDL Cholesterol Calculated 107 mg/dL (0-129) HDL Cholesterol 35 mg/dL (40-60) Cholesterol/HDL Ratio 4.1 Thyroid Stimulating Hormone (TSH) 1.014 uIU/mL (0.358-3.74) ECHOCARDIOGRAM ECHOCARDIOGRAM <Conclusion> The left ventricular systolic function is normal. The Ejection Fraction is 55-60%. There is normal LV segmental wall motion. Transmitral Doppler flow pattern is Grade I-abnormal relaxation pattern. Mild to moderate aortic regurgitation. Trace mitral regurgitation. There is no evidence of significant pericardial effusion. DATE: 10/21/18 1354 ASSESSMENT/PLAN ASSESSMENT/PLAN 1. Dizziness, near syncope. CT head negative for acute changes. MRI today. 2. Orthostatic hypotension; SBP drop from 125-92 sitting to standing. 3. Hypertension; BP has been mildly low since admission 4. Hyperlipemia 5. H/o CVA; on Plavix. 6. CKD Recommendations Compression stockings Recheck orthos; allow for 4 minutes between position changes. D/w RN Hold coreg and lisinopril for now with low BP Consider addition of midodrine if patient remains orthostatic SREE CLARK MD 03/24/19 1716: CARDIAC CONSULT ASSESSMENT/PLAN ASSESSMENT/PLAN Pt. seen and examined. Agree with above note. Supportive care. DIANA CHAPPELL APRN March 24, 2019 08:57 SREE CLARK MD March 24, 2019 17:16
--- NOTE | 2019-03-24 11:14 | RAD ---
MRI Brain without contrast History: Left upper extremity numbness, dizziness, headache Technique: Multiplanar, multisequential noncontrast MR imaging was performed of the brain. Comparison: October 21, 2018 Findings: There is no evidence of recent infarct. There is no new intra-axial mass effect, midline shift, extra-axial fluid collection. There is again moderate generalized supratentorial atrophy, ventricular size within normal limits. There is again overall mild T2 and FLAIR hyperintense signal abnormality of the supratentorial periventricular white matter bilaterally, a few small foci of the deep white matter also similar. There is again small old right thalamic lacunar infarct. There is again hemosiderin deposition compatible with previous hemorrhage of the right lateral thalamus and margin of right posterior limb of internal capsule overall unchanged. There may be some mild hemosiderin deposition along the left frontal cortical surface from previous hemorrhage although similar. There is preservation of the major arterial intracranial flow voids at the skull base. There has been lens surgery bilaterally, slightly disconjugate gaze. There is again mild right greater than left maxillary sinus as well as patchy minimal bilateral ethmoid air cell mucosal thickening, also very minimally of the sphenoid and frontal sinuses. Mastoid air cells are aerated. There is preserved marrow signal of the clivus. There is no new abnormality of pineal gland or pituitary gland. Cerebellar tonsils are normal in location. Impression: 1. There is no evidence of recent infarct or mass effect. 2. There is moderate supratentorial atrophy. 3. Minimal T2 and FLAIR hyperintense signal abnormality of the supratentorial parenchyma is nonspecific although probably due to chronic microvascular ischemic disease, also small old hemorrhagic right thalamic lacunar infarct as seen previously. 4. There is mild paranasal sinus mucosal thickening as stated. Electronically signed by: Vlad Montero MD (03/24/2019 11:11 AM) [id number]
--- NOTE | 2019-03-24 11:25 | NUR ---
SW following pt for anticipated dc needs. Chart reviewed. Pt lives at home with Spouse. Cardiology and Neurology consulted. PT/OT pending. SW will await for PT/OT recommendation to assess skilled needs.
[2019-03-24] MEDS: predniSONE 1 MG TABLET PO SCH (12:33)
--- NOTE | 2019-03-24 15:16 | PDOC ---
PROGRESS NOTES Assessment Assessment CVA syndrome. Left side face, tongue, UE and LE numbness. Dizziness and light headiness. Headache. HTN. HLD. 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 Tremor, chronic. No evidence of acute CVA this time. Ortho HR and BP within normal range. RECOMMENDATIONS/PLAN: Continue Plavix 75 mg daily. Continue ASA 81 mg daily. Carotid A US + Doppler. Treat medical diseases. OT/PT. HISTORY OF THE PRESENT ILLNESS: This is a 78 -year-old male patient with above medical diseases and a stroke 7 years ago affected his left side but recovered then. He stated around 9 AM this morning that he started feeling extremely dizzy after got up, he also felt numbness in his tongue and left side of face and UE and LE. He lied down for about 30 minutes and his symptoms of dizziness improved, but he still had numbness in his left hand so far after 10 hours. He felt very week when standing. He stated his symptoms improved in some degree, but still had dizziness when change position from lying or sitting to upright. Past Medical History Cardiovascular: HTN CENTRAL NERVOUS SYSTEM: CVA GI: GERD, Other Past Surgical History Cholecystectomy. Family History No Significant Social History Smoke: Quit (cliff[place] 2001) ALCOHOL: none Drugs: None ALLERGY: Unknown MEDICATIONS: Refer to MAR REVIEW OF SYSTEMS: Constitutional: No malnutrition, weight loss, cachexia. Head: No traumatic brain or head injury. Skin: No edema, or rash. Ear: No infection. Eyes: No vision loss or color blindness. Nose: No bleeding or purulent discharges. Hearing: Hearing decrease. Neck: No injury. Cardiac: HTN. Pulmonary: No COPD. GI: No GI ulcer, GI bleeding. Urinary/genital: UTI. Endocrinologic: No cousin face, craniofacial dysmorphism, polydactyly. Skeletomuscular: Generalized weakness. Neurological: see HP. Psychiatric: Denies drug use/abuse. Otherwise, not [id number] review of systems. PHYSICAL EXAMINATION: General appearance is in subacute distress. HEENT: Normocephalic and nontraumatic. Eyes, nose, ears, and throat are unre markable. Neck is supple. No lymphadenopathy. No crepitus. Cardiovascular: S1, S2, regular rate and rhythm. Pulmonary: Clear to auscultation bilaterally. Abdomen: Bowel sounds are positive. Abdomen is soft, nontender, and nondistended. Extremities: No rash, lesions, or edema. No restriction of range of motion NEUROLOGICAL EXAMINATION: Alert Oriented to time, place and person. PERRL. EOMI. CN: no focal findings. Muscle tone: within normal. Muscle strength: 4+ left UE and LE, 5 right side. DTR: 1-2 Plantar reflex: Flexor response bilaterally Gait: not examined in bed. Sensory exam: no abnormal findings. No cerebellar signs elicited. F-T-N test fine. Objective Objective Vital Signs Date Time Temp Pulse Resp B/P (MAP) Pulse Ox O2 Delivery O2 Flow Rate FiO2 03/24/19 09:04 73 115/70 (85) 03/24/19 08:00 Room Air 03/24/19 07:00 97.6 16 97 97.6 Intake and Output 03/24/19 07:00 Intake Total 600 ml Balance 600 ml Intake Oral 100 ml IV Total 500 ml # Voids 1 Vitals Signs Vitals VS - Last 72 Hours, by Label Date Time Temp Pulse Resp B/P (MAP) Pulse Ox O2 Delivery O2 Flow Rate FiO2 03/24/19 09:04 73 115/70 (85) 03/24/19 09:02 68 115/73 (87) 03/24/19 09:00 66 120/77 (91) 03/24/19 08:50 63 112/67 03/24/19 08:00 Room Air 03/24/19 08:00 63 112/67 03/24/19 07:00 97.6 63 16 112/67 (82) 97 Room Air 97.6 03/24/19 03:00 97.7 63 16 105/54 (71) 95 Room Air 97.7 03/23/19 23:00 97.8 65 16 114/59 (77) 95 Room Air 97.8 03/23/19 20:27 67 109/65 03/23/19 20:00 Room Air 03/23/19 19:00 97.7 67 16 109/65 (80) 95 Room Air 97.7 03/23/19 18:02 Room Air 03/23/19 17:04 79 92/59 (70) 98 Room Air 03/23/19 17:00 65 125/68 (87) 98 Room Air 03/23/19 16:55 97.7 66 19 117/73 (88) 98 Room Air 97.7 03/23/19 16:00 62 20 95 03/23/19 15:30 64 20 96 03/23/19 15:00 68 20 94 03/23/19 14:30 74 20 95 03/23/19 14:05 98.2 84 20 138/85 (102) 96 Room Air 98.2 Laboratory Laboratory Laboratory Tests Test 03/24/19 04:15 White Blood Count 6.9 x10^3/uL (4.0-11.0) Red Blood Count 4.02 x10^6/uL (4.30-5.70) Hemoglobin 12.9 g/dL (13.0-17.5) Hematocrit 37.5 % (39.0-53.0) Mean Corpuscular Volume 93 fL (79-100) Mean Corpuscular Hemoglobin 32 pg (25-35) Mean Corpuscular Hemoglobin Concent 34 g/dL (31-37) Red Cell Distribution Width 13.5 % (11.5-14.5) Platelet Count 215 x10^3/uL (140-400) Neutrophils (%) (Auto) 67 % (31-73) Lymphocytes (%) (Auto) 22 % (24-48) Monocytes (%) (Auto) 7 % (0-9) Eosinophils (%) (Auto) 3 % (0-3) Basophils (%) (Auto) 1 % (0-3) Neutrophils # (Auto) 4.7 x10^3uL (1.8-7.7) Lymphocytes # (Auto) 1.5 x10^3/uL (1.0-4.8) Monocytes # (Auto) 0.5 x10^3/uL (0.0-1.1) Eosinophils # (Auto) 0.2 x10^3/uL (0.0-0.7) Basophils # (Auto) 0.0 x10^3/uL (0.0-0.2) Sodium Level 138 mmol/L (136-145) Potassium Level 3.9 mmol/L (3.5-5.1) Chloride Level 101 mmol/L (98-107) Carbon Dioxide Level 25 mmol/L (21-32) Anion Gap 12 (6-14) Blood Urea Nitrogen 19 mg/dL (8-26) Creatinine 1.4 mg/dL (0.7-1.3) Estimated GFR (Cockcroft-Gault) 49.0 BUN/Creatinine Ratio 14 (6-20) Glucose Level 147 mg/dL (70-99) Calcium Level 8.8 mg/dL (8.5-10.1) Total Bilirubin 0.5 mg/dL (0.2-1.0) Aspartate Amino Transf (AST/SGOT) 12 U/L (15-37) Alanine Aminotransferase (ALT/SGPT) 18 U/L (16-63) Alkaline Phosphatase 90 U/L (46-116) Total Protein 6.2 g/dL (6.4-8.2) Albumin 3.4 g/dL (3.4-5.0) Albumin/Globulin Ratio 1.2 (1.0-1.7) Triglycerides Level 172 mg/dL (0-150) Cholesterol Level 142 mg/dL (0-200) LDL Cholesterol, Calculated 73 mg/dL (0-100) VLDL Cholesterol, Calculated 34 mg/dL (0-40) Non-HDL Cholesterol Calculated 107 mg/dL (0-129) HDL Cholesterol 35 mg/dL (40-60) Cholesterol/HDL Ratio 4.1 Thyroid Stimulating Hormone (TSH) 1.014 uIU/mL (0.358-3.74) Medication Medications Current Medications Aspirin (Children'S Aspirin) 81 mg DAILY PO Last administered on 03/24/19at 08:12; Start 03/23/19 at 19:00 Carvedilol (Coreg) 6.25 mg BIDWMEALS PO Last administered on 03/23/19at 20:27; Start 03/23/19 at 19:00; Stop 03/24/19 at 14:07; Status DC Clopidogrel Bisulfate (Plavix) 75 mg DAILYWBKFT PO Last administered on 03/24/19at 08:12; Start 03/23/19 at 19:00 Colchicine (Colcrys) 0.3 mg DAILY PO Last administered on 03/24/19at 08:11; Start 03/24/19 at 09:00 Enoxaparin Sodium (Lovenox 40mg Syringe) 40 mg Q24H SQ ; Start 03/23/19 at 21:00 Enoxaparin Sodium (Lovenox Per Pharmacy Prophylaxis Dosing) 1 each PRN DAILY PRN MC SEE COMMENTS; Start 03/23/19 at 18:00; Stop 03/24/19 at 13:59; Status DC Fludrocortisone Acetate (Florinef) 0.1 mg DAILY PO Last administered on 03/24/19at 08:11; Start 03/23/19 at 19:00 Hydrochlorothiazide (Microzide) 12.5 mg DAILY PO ; Start 03/23/19 at 19:00; Stop 03/24/19 at 14:07; Status DC Lisinopril (Prinivil) 20 mg DAILY PO ; Start 03/23/19 at 19:00; Stop 03/24/19 at 14:07; Status DC Morphine Sulfate (Morphine Sulfate) 2 mg PRN Q2HR PRN IV PAIN; Start 03/23/19 at 16:00; Stop 03/24/19 at 15:59 Nitroglycerin (Nitrostat) 0.4 mg PRN Q5MIN PRN SL CHEST PAIN; Start 03/23/19 at 16:00; Stop 03/24/19 at 15:59 Ondansetron HCl (Zofran) 4 mg PRN Q8HRS PRN IV NAUSEA/VOMITING; Start 03/23/19 at 16:00; Stop 03/24/19 at 15:59 Pantoprazole Sodium (Protonix) 40 mg DAILYAC PO Last administered on 03/24/19at 08:12; Start 03/24/19 at 07:30 Prednisone (Prednisone) 4 mg DAILY PO Last administered on 03/24/19at 12:33; Start 03/23/19 at 19:00 Primidone (Mysoline) 150 mg DAILY PO Last administered on 03/24/19at 08:11; Start 03/23/19 at 19:00 Comment Review of Relevant I have reviewed the following items margarita (where applicable) has been applied. KARLOS CAMARA MD March 24, 2019 15:16
--- NOTE | 2019-03-24 19:01 | PDOC ---
PROGRESS NOTES Chief Complaint Chief Complaint presyncope, - tele obs TIA orthostatic hypotension hx CVA with residual hemiparesis Plan: follow neurology customs consultant recommendations MRI pending reassess in the am History of Present Illness History of Present Illness Patient with no new complaints, he describes his symptoms as vertigo, plan discussed in detail all concersn addressed to the best o f my abilities. Vitals Vitals Vital Signs Date Time Temp Pulse Resp B/P (MAP) Pulse Ox O2 Delivery O2 Flow Rate FiO2 03/24/19 15:00 98.1 72 18 130/74 (92) 96 Room Air 98.1 Physical Exam General: Alert, Oriented X3, Cooperative Heart: Regular rate, Normal S1, Normal S2, Other (2/6 systolic murmur ) Lungs: Clear Abdomen: Soft, No tenderness Extremities: No edema, Normal pulses Skin: No significant lesion Labs LABS Laboratory Tests Test 03/24/19 04:15 White Blood Count 6.9 x10^3/uL (4.0-11.0) Red Blood Count 4.02 x10^6/uL (4.30-5.70) Hemoglobin 12.9 g/dL (13.0-17.5) Hematocrit 37.5 % (39.0-53.0) Mean Corpuscular Volume 93 fL (79-100) Mean Corpuscular Hemoglobin 32 pg (25-35) Mean Corpuscular Hemoglobin Concent 34 g/dL (31-37) Red Cell Distribution Width 13.5 % (11.5-14.5) Platelet Count 215 x10^3/uL (140-400) Neutrophils (%) (Auto) 67 % (31-73) Lymphocytes (%) (Auto) 22 % (24-48) Monocytes (%) (Auto) 7 % (0-9) Eosinophils (%) (Auto) 3 % (0-3) Basophils (%) (Auto) 1 % (0-3) Neutrophils # (Auto) 4.7 x10^3uL (1.8-7.7) Lymphocytes # (Auto) 1.5 x10^3/uL (1.0-4.8) Monocytes # (Auto) 0.5 x10^3/uL (0.0-1.1) Eosinophils # (Auto) 0.2 x10^3/uL (0.0-0.7) Basophils # (Auto) 0.0 x10^3/uL (0.0-0.2) Sodium Level 138 mmol/L (136-145) Potassium Level 3.9 mmol/L (3.5-5.1) Chloride Level 101 mmol/L (98-107) Carbon Dioxide Level 25 mmol/L (21-32) Anion Gap 12 (6-14) Blood Urea Nitrogen 19 mg/dL (8-26) Creatinine 1.4 mg/dL (0.7-1.3) Estimated GFR (Cockcroft-Gault) 49.0 BUN/Creatinine Ratio 14 (6-20) Glucose Level 147 mg/dL (70-99) Calcium Level 8.8 mg/dL (8.5-10.1) Total Bilirubin 0.5 mg/dL (0.2-1.0) Aspartate Amino Transf (AST/SGOT) 12 U/L (15-37) Alanine Aminotransferase (ALT/SGPT) 18 U/L (16-63) Alkaline Phosphatase 90 U/L (46-116) Total Protein 6.2 g/dL (6.4-8.2) Albumin 3.4 g/dL (3.4-5.0) Albumin/Globulin Ratio 1.2 (1.0-1.7) Triglycerides Level 172 mg/dL (0-150) Cholesterol Level 142 mg/dL (0-200) LDL Cholesterol, Calculated 73 mg/dL (0-100) VLDL Cholesterol, Calculated 34 mg/dL (0-40) Non-HDL Cholesterol Calculated 107 mg/dL (0-129) HDL Cholesterol 35 mg/dL (40-60) Cholesterol/HDL Ratio 4.1 Thyroid Stimulating Hormone (TSH) 1.014 uIU/mL (0.358-3.74) Review of Systems Review of Systems Pertinent as per history of present illness otherwise 14 point review of system is negative Assessment and Plan Assessmemt and Plan Problems Medical Problems: (1) Atypical chest pain Status: Acute (2) Dizziness Status: Acute Comment Review of Relevant I have reviewed the following items margarita (where applicable) has been applied. Labs Laboratory Tests Test 03/23/19 14:10 03/24/19 04:15 White Blood Count 8.6 x10^3/uL (4.0-11.0) 6.9 x10^3/uL (4.0-11.0) Red Blood Count 4.45 x10^6/uL (4.30-5.70) 4.02 x10^6/uL (4.30-5.70) Hemoglobin 14.4 g/dL (13.0-17.5) 12.9 g/dL (13.0-17.5) Hematocrit 41.8 % (39.0-53.0) 37.5 % (39.0-53.0) Mean Corpuscular Volume 94 fL (79-100) 93 fL (79-100) Mean Corpuscular Hemoglobin 32 pg (25-35) 32 pg (25-35) Mean Corpuscular Hemoglobin Concent 35 g/dL (31-37) 34 g/dL (31-37) Red Cell Distribution Width 13.3 % (11.5-14.5) 13.5 % (11.5-14.5) Platelet Count 255 x10^3/uL (140-400) 215 x10^3/uL (140-400) Neutrophils (%) (Auto) 64 % (31-73) 67 % (31-73) Lymphocytes (%) (Auto) 26 % (24-48) 22 % (24-48) Monocytes (%) (Auto) 7 % (0-9) 7 % (0-9) Eosinophils (%) (Auto) 3 % (0-3) 3 % (0-3) Basophils (%) (Auto) 1 % (0-3) 1 % (0-3) Neutrophils # (Auto) 5.5 x10^3uL (1.8-7.7) 4.7 x10^3uL (1.8-7.7) Lymphocytes # (Auto) 2.2 x10^3/uL (1.0-4.8) 1.5 x10^3/uL (1.0-4.8) Monocytes # (Auto) 0.6 x10^3/uL (0.0-1.1) 0.5 x10^3/uL (0.0-1.1) Eosinophils # (Auto) 0.2 x10^3/uL (0.0-0.7) 0.2 x10^3/uL (0.0-0.7) Basophils # (Auto) 0.1 x10^3/uL (0.0-0.2) 0.0 x10^3/uL (0.0-0.2) Sodium Level 137 mmol/L (136-145) 138 mmol/L (136-145) Potassium Level 4.1 mmol/L (3.5-5.1) 3.9 mmol/L (3.5-5.1) Chloride Level 100 mmol/L (98-107) 101 mmol/L (98-107) Carbon Dioxide Level 26 mmol/L (21-32) 25 mmol/L (21-32) Anion Gap 11 (6-14) 12 (6-14) Blood Urea Nitrogen 20 mg/dL (8-26) 19 mg/dL (8-26) Creatinine 1.5 mg/dL (0.7-1.3) 1.4 mg/dL (0.7-1.3) Estimated GFR (Cockcroft-Gault) 45.3 49.0 BUN/Creatinine Ratio 13 (6-20) 14 (6-20) Glucose Level 141 mg/dL (70-99) 147 mg/dL (70-99) Calcium Level 9.3 mg/dL (8.5-10.1) 8.8 mg/dL (8.5-10.1) Magnesium Level 1.9 mg/dL (1.8-2.4) Total Bilirubin 0.6 mg/dL (0.2-1.0) 0.5 mg/dL (0.2-1.0) Aspartate Amino Transf (AST/SGOT) 18 U/L (15-37) 12 U/L (15-37) Alanine Aminotransferase (ALT/SGPT) 22 U/L (16-63) 18 U/L (16-63) Alkaline Phosphatase 109 U/L (46-116) 90 U/L (46-116) Troponin I Quantitative < 0.017 ng/mL (0.000-0.055) Total Protein 7.3 g/dL (6.4-8.2) 6.2 g/dL (6.4-8.2) Albumin 4.0 g/dL (3.4-5.0) 3.4 g/dL (3.4-5.0) Albumin/Globulin Ratio 1.2 (1.0-1.7) 1.2 (1.0-1.7) Triglycerides Level 172 mg/dL (0-150) Cholesterol Level 142 mg/dL (0-200) LDL Cholesterol, Calculated 73 mg/dL (0-100) VLDL Cholesterol, Calculated 34 mg/dL (0-40) Non-HDL Cholesterol Calculated 107 mg/dL (0-129) HDL Cholesterol 35 mg/dL (40-60) Cholesterol/HDL Ratio 4.1 Thyroid Stimulating Hormone (TSH) 1.014 uIU/mL (0.358-3.74) Laboratory Tests Test 03/24/19 04:15 White Blood Count 6.9 x10^3/uL (4.0-11.0) Red Blood Count 4.02 x10^6/uL (4.30-5.70) Hemoglobin 12.9 g/dL (13.0-17.5) Hematocrit 37.5 % (39.0-53.0) Mean Corpuscular Volume 93 fL (79-100) Mean Corpuscular Hemoglobin 32 pg (25-35) Mean Corpuscular Hemoglobin Concent 34 g/dL (31-37) Red Cell Distribution Width 13.5 % (11.5-14.5) Platelet Count 215 x10^3/uL (140-400) Neutrophils (%) (Auto) 67 % (31-73) Lymphocytes (%) (Auto) 22 % (24-48) Monocytes (%) (Auto) 7 % (0-9) Eosinophils (%) (Auto) 3 % (0-3) Basophils (%) (Auto) 1 % (0-3) Neutrophils # (Auto) 4.7 x10^3uL (1.8-7.7) Lymphocytes # (Auto) 1.5 x10^3/uL (1.0-4.8) Monocytes # (Auto) 0.5 x10^3/uL (0.0-1.1) Eosinophils # (Auto) 0.2 x10^3/uL (0.0-0.7) Basophils # (Auto) 0.0 x10^3/uL (0.0-0.2) Sodium Level 138 mmol/L (136-145) Potassium Level 3.9 mmol/L (3.5-5.1) Chloride Level 101 mmol/L (98-107) Carbon Dioxide Level 25 mmol/L (21-32) Anion Gap 12 (6-14) Blood Urea Nitrogen 19 mg/dL (8-26) Creatinine 1.4 mg/dL (0.7-1.3) Estimated GFR (Cockcroft-Gault) 49.0 BUN/Creatinine Ratio 14 (6-20) Glucose Level 147 mg/dL (70-99) Calcium Level 8.8 mg/dL (8.5-10.1) Total Bilirubin 0.5 mg/dL (0.2-1.0) Aspartate Amino Transf (AST/SGOT) 12 U/L (15-37) Alanine Aminotransferase (ALT/SGPT) 18 U/L (16-63) Alkaline Phosphatase 90 U/L (46-116) Total Protein 6.2 g/dL (6.4-8.2) Albumin 3.4 g/dL (3.4-5.0) Albumin/Globulin Ratio 1.2 (1.0-1.7) Triglycerides Level 172 mg/dL (0-150) Cholesterol Level 142 mg/dL (0-200) LDL Cholesterol, Calculated 73 mg/dL (0-100) VLDL Cholesterol, Calculated 34 mg/dL (0-40) Non-HDL Cholesterol Calculated 107 mg/dL (0-129) HDL Cholesterol 35 mg/dL (40-60) Cholesterol/HDL Ratio 4.1 Thyroid Stimulating Hormone (TSH) 1.014 uIU/mL (0.358-3.74) Medications Current Medications Aspirin (Children'S Aspirin) 324 mg 1X ONCE PO Last administered on 03/23/19at 14:47; Start 03/23/19 at 14:15; Stop 03/23/19 at 14:16; Status DC Sodium Chloride 500 ml @ 500 mls/hr 1X ONCE IV Last administered on 03/23/19at 14:48; Start 03/23/19 at 14:30; Stop 03/23/19 at 15:29; Status DC Ondansetron HCl (Zofran) 4 mg PRN Q8HRS PRN IV NAUSEA/VOMITING; Start 03/23/19 at 16:00; Stop 03/24/19 at 15:59; Status DC Morphine Sulfate (Morphine Sulfate) 2 mg PRN Q2HR PRN IV PAIN; Start 03/23/19 at 16:00; Stop 03/24/19 at 15:59; Status DC Nitroglycerin (Nitrostat) 0.4 mg PRN Q5MIN PRN SL CHEST PAIN; Start 03/23/19 at 16:00; Stop 03/24/19 at 15:59; Status DC Enoxaparin Sodium (Lovenox Per Pharmacy Prophylaxis Dosing) 1 each PRN DAILY PRN MC SEE COMMENTS; Start 03/23/19 at 18:00; Stop 03/24/19 at 13:59; Status DC Fludrocortisone Acetate (Florinef) 0.1 mg DAILY PO Last administered on 03/24/19 08:11; Start 03/23/19 at 19:00 Aspirin (Children'S Aspirin) 81 mg DAILY PO Last administered on 03/24/19 08:12; Start 03/23/19 at 19:00 Carvedilol (Coreg) 6.25 mg BIDWMEALS PO Last administered on 03/23/19at 20:27; Start 03/23/19 at 19:00; Stop 03/24/19 at 14:07; Status DC Clopidogrel Bisulfate (Plavix) 75 mg DAILYWBKFT PO Last administered on 03/24/19 08:12; Start 03/23/19 at 19:00 Colchicine (Colcrys) 0.3 mg DAILY PO Last administered on 03/24/19 08:11; Start 03/24/19 at 09:00 Prednisone (Prednisone) 4 mg DAILY PO Last administered on 03/24/19at 12:33; Start 03/23/19 at 19:00 Lisinopril (Prinivil) 20 mg DAILY PO ; Start 03/23/19 at 19:00; Stop 03/24/19 at 14:07; Status DC Pantoprazole Sodium (Protonix) 40 mg DAILYAC PO Last administered on 03/24/19at 08:12; Start 03/24/19 at 07:30 Primidone (Mysoline) 150 mg DAILY PO Last administered on 03/24/19at 08:11; Start 03/23/19 at 19:00 Enoxaparin Sodium (Lovenox 40mg Syringe) 40 mg Q24H SQ ; Start 03/23/19 at 21:00 Hydrochlorothiazide (Microzide) 12.5 mg DAILY PO ; Start 03/23/19 at 19:00; Stop 03/24/19 at 14:07; Status DC Active Scripts Active Clopidogrel (Clopidogrel Bisulfate) 75 Mg Tablet 75 Mg PO DAILYWBKFT MDD 1 Colcrys (Colchicine) 0.6 Mg Tablet 1 Tab PO DAILY Medrol (Methylprednisolone) 4 Mg Tablet 7 Cap PO UD Reported Aspirin 81 Mg Tab.chew 1 Tab PO DAILY Primidone 50 Mg Tablet 150 Mg PO DAILY Tart Sanders Capsule (Vit C/Sanders & Celery Ex/Grp E) 1 Each Capsule 2 Each PO DAILY Omeprazole 20 Mg Tablet.dr 1 Tab PO DAILY Lisinopril-Hctz 20-12.5 Mg Tab (Lisinopril/Hydrochlorothiazide) 1 Each Tablet 1 Tab PO DAILY Coreg (Carvedilol) 6.25 Mg Tablet 6.25 Mg PO BIDWMEALS Prednisone 1 Mg Tablet 4 Tab PO DAILY Vitals/I & O Vital Sign - Last 24 Hours 03/23/19 03/23/19 03/23/19 03/23/19 19:00 20:00 20:27 23:00 Temp 97.7 97.8 97.7 97.8 Pulse 67 67 65 Resp 16 16 B/P (MAP) 109/65 (80) 109/65 114/59 (77) Pulse Ox 95 95 O2 Delivery Room Air Room Air Room Air 03/24/19 03/24/19 03/24/19 03/24/19 03:00 07:00 08:00 08:00 Temp 97.7 97.6 97.7 97.6 Pulse 63 63 63 Resp 16 16 B/P (MAP) 105/54 (71) 112/67 (82) 112/67 Pulse Ox 95 97 O2 Delivery Room Air Room Air Room Air 03/24/19 03/24/19 03/24/19 03/24/19 08:50 09:00 09:02 09:04 Pulse 63 66 68 73 B/P (MAP) 112/67 120/77 (91) 115/73 (87) 115/70 (85) 03/24/19 15:00 Temp 98.1 98.1 Pulse 72 Resp 18 B/P (MAP) 130/74 (92) Pulse Ox 96 O2 Delivery Room Air Intake and Output 03/23/19 03/23/19 03/24/19 15:00 23:00 07:00 Intake Total 500 ml 100 ml Balance 500 ml 100 ml MARY JACKSON MD March 24, 2019 19:01
[2019-03-24] MEDS: ENOXAPARIN 40 MG/0.4 ML SYRINGE. SQ SCH (21:00)
[2019-03-25 03:05] VITALS: BP 129/73
[2019-03-25 07:50] VITALS: BP 130/83
--- NOTE | 2019-03-25 07:50 | RAD ---
Carotid ultrasound, 03/24/2019: HISTORY: Carotid calcification Duplex evaluation of the carotid arteries and neck was performed including grayscale, color-flow and spectral Doppler analysis. There is mild smooth plaquing in the common carotid arteries bilaterally with moderate partially calcified plaque at the carotid bifurcations. The proximal right internal carotid artery is tortuous. The peak systolic velocity in the proximal right internal carotid artery is 109 cm/s with an end-diastolic velocity of 19 cm/s and an internal carotid to common carotid artery ratio 1.2. These Doppler findings suggest luminal narrowing in the 0-50 percent diameter range. On the left, the peak systolic velocity in the internal carotid artery is 79 cm/s with an end-diastolic velocity of 23 cm/s and an internal carotid to common carotid artery ratio of 0.8. These Doppler findings also suggest luminal narrowing in the 0-50 percent diameter range. Antegrade flow is present in both vertebral arteries in the neck. IMPRESSION: Moderate atherosclerotic plaquing at both carotid bifurcations with underlying luminal narrowing in the 0-50 percent diameter range bilaterally. Note: Stenosis calculations for CT, MRA and conventional angiography are based upon determination of the distal ICA diameter in accordance with the NASCET methodology. Stenosis calculations for Doppler studies are derived from validated velocity criteria which are known to correlate with NASCET methodology of determining stenosis. Electronically signed by: Mario Alcala MD (03/25/2019 7:47 AM) [facility]
[2019-03-25] MEDS: COLCHICINE 0.6 MG TABLET PO SCH (08:08)
[2019-03-25] MEDS: predniSONE 1 MG TABLET PO SCH (08:08)
[2019-03-25] MEDS: PRIMIDONE 50 MG TABLET PO SCH (08:08)
[2019-03-25] MEDS: PANTOPRAZOLE 40 MG TABLET.DR. PO SCH (08:08)
[2019-03-25] MEDS: ASPIRIN CHEWABLE 81 MG TABLET. PO SCH (08:09)
[2019-03-25] MEDS: FLUDROCORTISONE 0.1 MG TABLET PO SCH (08:09)
[2019-03-25] MEDS: CLOPIDOGREL BISULFATE 75 MG TABLET PO SCH (08:09)
[2019-03-25] MEDS ORDERED: MECL25TA3 PO (10:39)
--- NOTE | 2019-03-25 10:52 | PDOC3 ---
Discharge Summary Visit Information Date of Admission: March 23, 2019 Date of Discharge: March 25, 2019 Admitting Diagnosis: dizziness Final Diagnosis Problems Medical Problems: (1) Atypical chest pain Status: Acute (2) Dizziness Status: Acute Brief Hospital Course Allergies Allergies Coded Allergies Type Severity Reaction Last Updated Verified No Known Drug Allergies 10/20/18 No Vital Signs Vital Signs Date Time Temp Pulse Resp B/P (MAP) Pulse Ox O2 Delivery O2 Flow Rate FiO2 03/25/19 08:00 Room Air 03/25/19 07:50 97.7 74 20 130/83 (99) 96 97.7 Lab Results Laboratory Tests Test 03/23/19 14:10 03/24/19 04:15 White Blood Count 8.6 x10^3/uL (4.0-11.0) 6.9 x10^3/uL (4.0-11.0) Red Blood Count 4.45 x10^6/uL (4.30-5.70) 4.02 x10^6/uL (4.30-5.70) Hemoglobin 14.4 g/dL (13.0-17.5) 12.9 g/dL (13.0-17.5) Hematocrit 41.8 % (39.0-53.0) 37.5 % (39.0-53.0) Mean Corpuscular Volume 94 fL (79-100) 93 fL (79-100) Mean Corpuscular Hemoglobin 32 pg (25-35) 32 pg (25-35) Mean Corpuscular Hemoglobin Concent 35 g/dL (31-37) 34 g/dL (31-37) Red Cell Distribution Width 13.3 % (11.5-14.5) 13.5 % (11.5-14.5) Platelet Count 255 x10^3/uL (140-400) 215 x10^3/uL (140-400) Neutrophils (%) (Auto) 64 % (31-73) 67 % (31-73) Lymphocytes (%) (Auto) 26 % (24-48) 22 % (24-48) Monocytes (%) (Auto) 7 % (0-9) 7 % (0-9) Eosinophils (%) (Auto) 3 % (0-3) 3 % (0-3) Basophils (%) (Auto) 1 % (0-3) 1 % (0-3) Neutrophils # (Auto) 5.5 x10^3uL (1.8-7.7) 4.7 x10^3uL (1.8-7.7) Lymphocytes # (Auto) 2.2 x10^3/uL (1.0-4.8) 1.5 x10^3/uL (1.0-4.8) Monocytes # (Auto) 0.6 x10^3/uL (0.0-1.1) 0.5 x10^3/uL (0.0-1.1) Eosinophils # (Auto) 0.2 x10^3/uL (0.0-0.7) 0.2 x10^3/uL (0.0-0.7) Basophils # (Auto) 0.1 x10^3/uL (0.0-0.2) 0.0 x10^3/uL (0.0-0.2) Sodium Level 137 mmol/L (136-145) 138 mmol/L (136-145) Potassium Level 4.1 mmol/L (3.5-5.1) 3.9 mmol/L (3.5-5.1) Chloride Level 100 mmol/L (98-107) 101 mmol/L (98-107) Carbon Dioxide Level 26 mmol/L (21-32) 25 mmol/L (21-32) Anion Gap 11 (6-14) 12 (6-14) Blood Urea Nitrogen 20 mg/dL (8-26) 19 mg/dL (8-26) Creatinine 1.5 mg/dL (0.7-1.3) 1.4 mg/dL (0.7-1.3) Estimated GFR (Cockcroft-Gault) 45.3 49.0 BUN/Creatinine Ratio 13 (6-20) 14 (6-20) Glucose Level 141 mg/dL (70-99) 147 mg/dL (70-99) Calcium Level 9.3 mg/dL (8.5-10.1) 8.8 mg/dL (8.5-10.1) Magnesium Level 1.9 mg/dL (1.8-2.4) Total Bilirubin 0.6 mg/dL (0.2-1.0) 0.5 mg/dL (0.2-1.0) Aspartate Amino Transf (AST/SGOT) 18 U/L (15-37) 12 U/L (15-37) Alanine Aminotransferase (ALT/SGPT) 22 U/L (16-63) 18 U/L (16-63) Alkaline Phosphatase 109 U/L (46-116) 90 U/L (46-116) Troponin I Quantitative < 0.017 ng/mL (0.000-0.055) Total Protein 7.3 g/dL (6.4-8.2) 6.2 g/dL (6.4-8.2) Albumin 4.0 g/dL (3.4-5.0) 3.4 g/dL (3.4-5.0) Albumin/Globulin Ratio 1.2 (1.0-1.7) 1.2 (1.0-1.7) Triglycerides Level 172 mg/dL (0-150) Cholesterol Level 142 mg/dL (0-200) LDL Cholesterol, Calculated 73 mg/dL (0-100) VLDL Cholesterol, Calculated 34 mg/dL (0-40) Non-HDL Cholesterol Calculated 107 mg/dL (0-129) HDL Cholesterol 35 mg/dL (40-60) Cholesterol/HDL Ratio 4.1 Thyroid Stimulating Hormone (TSH) 1.014 uIU/mL (0.358-3.74) Brief Hospital Course MR. Ahmadi is a 78 year old male admt from with near-syncope. 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 He would maybe say the left arm was heavy or weak Also had a headache that accompanied it. no pain currently Patient was admitted to the floor where he was seen in consultation by neurology. The patient did not percent neurological deficits and he had a complete workup including an MRI. The patient had a history of a previous stroke this was not evident on her imaging studies and he recovered from the incident quite quickly. The patient did not percent recurrence of his symptoms most likely the etiology of his symptoms was vertigo. I have explained the disease process and the signs and symptoms of alarm and when to call for help if certain symptoms recur. I have encourage him to follow up with his primary care physicia n within one week and provided him with a prescription for meclizine for symptomatic relief of symptoms if they would recur. In good spirits to be going home today all of his concerns were addressed to the best of my abilities Gen.: well-developed well-nourished in no apparent distress Head: Normal shape atraumatic Eyes: Pupils equal reactive to light and accommodation, normal conjunctivae and lids Ears: Normal shape Nose: Normal shape no trauma Mouth: No exudates of the back of throat no thrush no lesions Neck: Supple no JVD no carotid bruit or lymphadenopathy no thyromegaly Chest: Lungs clear to auscultation with good inspiratory effort no crackles rales or rhonchi Cardiovascular: S1-S2 regular rhythm no murmurs gallops or rubs Abdomen: Bowel sounds present soft nontender no hepatosplenomegaly appreciated sign Extremities: No clubbing no cyanosis no edema peripheral pulses palpated bilaterally Neurological: Alert awake oriented in person time place and situation, cranial nerves II through XII intact, no motor or sensory deficits appreciated Psych: Appropriate mood, cooperative Discharge Information Condition at Discharge: Improved Follow Up: Weeks (with primary care physician) Disposition/Orders: D/C to Home Scheduled Aspirin (Aspirin) 81 Mg Tab.chew, 1 TAB PO DAILY for blood thinner , #30 Ref 3 (Reported) Entered as Reported by: Gentry Guaman on 10/20/182143 Last Action: Continued on 03/23/191757 by CRISTIAN ESTEVEZ Carvedilol (Coreg ) 6.25 Mg Tablet, 6.25 MG PO BIDWMEALS for CARDIAC, (Reported) Entered as Reported by: Gentry Guaman on 10/20/182143 Last Action: Continued on 03/23/191757 by CRISTIAN ESTEVEZ Clopidogrel Bisulfate (Clopidogrel) 75 Mg Tablet, 75 MG PO DAILYWBKFT for TIA MDD 1, #60 Prescribed by: LUANA MORELOS on 10/21/18 1119 Last Action: Continued on 03/23/191757 by CRISTIAN ESTEVEZ Colchicine (Colcrys) 0.6 Mg Tablet, 1 TAB PO DAILY, #30 Ref 3 Prescribed by: LUANA MORELOS on 09/21/17 1043 Last Action: Continued on 03/23/191757 by CRISTIAN ESTEVEZ Lisinopril/Hydrochlorothiazide (Lisinopril-Hctz 20-12.5 Mg Tab) 1 Each Tablet, 1 TAB PO DAILY for htn , #30 Ref 5 (Reported) Entered as Reported by: Gentry Guaman on 10/20/182143 Last Action: Converted on 03/23/191757 by CRISTIAN ESTEVEZ Meclizine Hcl (Meclizine Hcl) 25 Mg Tablet, 1 TAB PO PRN TID for dizziness, #30 Prescribed by: MARY JACKSON MD on 03/25/19 1039 Omeprazole (Omeprazole) 20 Mg Tablet.dr, 1 TAB PO DAILY for stomach acid , #90 Ref 1 (Reported) Entered as Reported by: Gentry Guaman on 10/20/182143 Last Action: Converted on 03/23/191757 by CRISTIAN ESTEVEZ Prednisone (Prednisone) 1 Mg Tablet, 4 TAB PO DAILY for gout, #360 Ref 3 (Reported) Entered as Reported by: DIOMEDES ADLER on 09/21/171153 Last Action: Continued on 03/23/191757 by CRISTIAN ESTEVEZ Primidone (Primidone) 50 Mg Tablet, 150 MG PO daily for tremors , (Reported) Entered as Reported by: Gentry Guaman on 10/20/182143 Last Action: Converted on 03/23/191757 by CRISTIAN ESTEVEZ Vit C/Sanders & Celery Ex/Grp E (Tart Sanders Capsule) 1 Each Capsule, 2 EACH PO daily for gout , (Reported) Entered as Reported by: Gentry Guaman on 10/20/182143 Last Action: HELD on 03/23/191757 by CRISTIAN ESTEVEZ Discontinued Medications Methylprednisolone (Medrol) 4 Mg Tablet, 7 CAP PO UD, #21 Prescribed by: LUANA MORELOS on 09/21/17 1043 Last Action: HELD on 03/23/191757 by MARY EMERSON MD March 25, 2019 10:52
== END 2019-03-25 11:30 | disposition home or self-care (01) | DRG 74 ==
LOC: ER 13:09 → 6 SOUTH 15:52
PROVIDERS: ADMIT Internal Medicine; ATTEND Internal Medicine
DX: G90.8 Other disorders of autonomic nervous system (principal); I69.359 Hemiplegia and hemiparesis following cerebral infarction affecting unspecified side; I95.1 Orthostatic hypotension; I12.9 Hypertensive chronic kidney disease with stage 1 through stage 4 chronic kidney disease, or unspecified chronic kidney disease; N18.9 Chronic kidney disease, unspecified; E78.00 Pure hypercholesterolemia, unspecified; M19.90 Unspecified osteoarthritis, unspecified site; K22.70 Barrett's esophagus without dysplasia; M10.9 Gout, unspecified; K21.9 Gastro-esophageal reflux disease without esophagitis; E78.5 Hyperlipidemia, unspecified; Z79.02 Long term (current) use of antithrombotics/antiplatelets; Z79.82 Long term (current) use of aspirin; Z83.3 Family history of diabetes mellitus
CPT/HCPCS: 36415; 70450; 70551; 71046; 80053; 80061; 83735; 84443; 84484; 85025; 93005; 93880; 96360; J7040; J7512; 99285-25

== ENCOUNTER 2020-08-08 11:22 | Emergency (ER) | payer MEDICARE, OTHER ==
[~2020-08-08] VITALS: Ht 172.7 cm; Wt 79.0 kg
[~2020-08-08 11:22] MED LIST changes: +LISI1TAB37 PO; -LISI1TAB5 PO; +MECL-75 PO
--- NOTE | 2020-08-08 12:10 | PHYS DOC ---
Past Medical History Past Medical History: High Cholesterol, Hypertension, Other Additional Past Medical Histor: TREMORS, STROKE x 2 (L side) Past Surgical History: Other Additional Past Surgical Histo: ABD SURGERY Smoking Status: Never Smoker Alcohol Use: Occasionally Drug Use: None General Adult EDM: Chief Complaint: Congestion HPI: HPI: Patient is a 79 year old male who presents with 1 week of fatigue, lack of appetite, cough, diarrhea intermittently, headache intermittently, dizziness intermittently when he goes to stand up, runny nose. His was just diagnosed yesterday with COVID. Patient has a history of high cholesterol, stroke x2, tremors, diverticulitis, dizziness in the past, hypertension. He is on Plavix and aspirin. Patient denies chest pain, nausea, vomiting, shortness of breath, syncope, focal weakness, vision changes, numbness or tingling, abdominal pain. He denies any pain at this time. Review of Systems: Review of Systems: Constitutional: Denies fever or chills. [] Eyes: Denies change in visual acuity. [] HENT: + nasal congestion or denies sore throat. [] Respiratory: + cough or denies shortness of breath. [] Cardiovascular: Denies chest pain or edema. [] GI: Denies abdominal pain, nausea, vomiting, bloody stools. +diarrhea and lack of appetite. [] : Denies dysuria. [] Musculoskeletal: Denies back pain or joint pain. [] Integument: Denies rash. [] Neurologic: + headache, + dizziness, focal weakness or sensory changes. [] Endocrine: Denies polyuria or polydipsia. [] Lymphatic: Denies swollen glands. [] Psychiatric: Denies depression or anxiety. [] Heart Score: Risk Factors: Risk Factors: DM, Current or recent (<one month) smoker, HTN, HLP, family history of CAD, obesity. Risk Scores: Score 0 - 3: 2.5% MACE over next 6 weeks - Discharge Home Score 4 - 6: 20.3% MACE over next 6 weeks - Admit for Clinical Observation Score 7 - 10: 72.7% MACE over next 6 weeks - Early Invasive Strategies Allergies: Allergies: Allergies Coded Allergies Type Severity Reaction Last Updated Verified No Known Drug Allergies 10/20/18 No Physical Exam: PE: Constitutional: Well developed, well nourished, no acute distress, non-toxic appearance. [] HENT: Normocephalic, atraumatic, bilateral external ears normal, oropharynx moist, no oral exudates, nose normal. [] Eyes: PERRLA, EOMI, conjunctiva normal, no discharge. [] Neck: Normal range of motion, no tenderness, supple, no stridor. [] Cardiovascular:Heart rate regular rhythm, no murmur [] Lungs & Thorax: Bilateral upper breath sounds clear and lower diminished to auscultation [] Abdomen: Bowel sounds normal, soft, no tenderness, no masses, no pulsatile masses. [] Skin: Warm, dry, no erythema, no rash. [] Back: No tenderness, no CVA tenderness. [] Extremities: No tenderness, no cyanosis, no clubbing, ROM intact, no edema. [] Neurologic: Alert and oriented X 3, normal motor function, normal sensory function, no focal deficits noted. [] Psychologic: Affect normal, judgement normal, mood normal. [] Current Patient Data: Vital Signs: Vital Signs Date Time Temp Pulse Resp B/P (MAP) Pulse Ox O2 Delivery O2 Flow Rate FiO2 08/08/20 11:42 98.6 18 133/76 (95) 98 Room Air 98.6 EKG: EK and read by Dr. Melo as sinus rhythm and no STEMI. [] Radiology/Procedures: Radiology/Procedures: [] Impression: [facility] [address] [place] [address] IMAGING REPORT Signed PATIENT: AIDA DICKERSON ACCOUNT: [id number] : 1940 LOCATION: ER AGE: 79 SEX: M EXAM STATUS: REG ER ORD. PHYSICIAN: XENA SOLANO APRN REASON: cough PROCEDURE: PORTABLE CHEST 1V INDICATION: Reason: cough / Spl. Instructions: / History: COMPARISON: March 2019 FINDINGS: Single view of chest obtained. Cardiac silhouette is similar to prior with calcific atherosclerosis and tortuous aortic contour. Degenerative changes of the bilateral shoulders. No definite focal airspace consolidation or pulmonary edema. IMPRESSION: * No focal airspace consolidation. Electronically signed by: Charity Marquez MD (08/08/2020 1:03 PM) [id number] DICTATED and SIGNED BY: CHARITY MARQUEZ MD DATE: 08/08/20 2206 Course & Med Decision Making: Course & Med Decision Making Pertinent Labs and Imaging studies reviewed. (See chart for details) COVID-19 CRITERIA: The patient was evaluated during the global COVID-19 pandemic, and that diagnosis was suspected/considered upon their initial presentation. Their evaluation, treatment and testing was consistent with current guidelines for patients who present with complaints or symptoms that may be related to COVID-19. HPI. Alert and oriented x4. Abdomen is soft and nontender. Skin pink warm and dry. Lungs are clear in upper lobes and diminished in lower lobes. Speaks in full complete sentences. Chest x-ray shows no acute findings. Blood work is unremarkable. Patient was tested for COVID of which he most likely has. Patient is stable and in no dist ress. Vital signs are stable. [] Dragon Disclaimer: Dragon Disclaimer: This electronic medical record was generated, in whole or in part, using a voice recognition dictation system. COVID-19 Patient Risks: Age 65 or older: Yes Sign of co-morbidity: Yes Exp to person + for COVID: Yes Exp to PUI: No Travel from affected area: No Lower respiratory symptoms: Yes Fever: No Other: Yes (Diarrhea, fatigue, nasal drainage) PPE Use: Full PPE with N95 mask or PAPR: Yes Departure Departure Impression: Primary Impression: Person under investigation for COVID-19 Additional Impressions: Fatigue Qualified Codes: R53.83 - Other fatigue Nasal congestion Disposition: 01 HOME, SELF-CARE Condition: STABLE Referrals: MARTY NG (PCP) Patient Instructions: Fatigue Additional Instructions: Quarantine yourself to you know your COVID status. Follow-up with your primary care physician if needed. If symptoms worsen return to the emergency room. Drink plenty of fluids. Try to eat as much as you can. You have been tested for or diagnosed with COVID-19. It is an infection caused by a new type of coronavirus. COVID-19 will cause cold-like or mild flu symptoms in most. It can cause more severe symptoms like problems breathing in some. There is no treatment for COVID-19. The body will clear the infection over time. Self-care will help to ease discomfort. Steps to Take: Self-Care Rest as needed. Healthy habits may help you feel better. Steps include: Choose healthy foods including fruits and vegetables. Drink water throughout the day. Get plenty of sleep each night. If you smoke, try to quit. It may ease breathing. Avoid alcohol. Keep Others Healthy The virus can spread to others. Droplets are released every time you sneeze or cough. The droplets can get into the mouth, nose, or eyes of people near you and lead to infection. To lower the chances of spreading COVID-19 to others: Stay at home until your doctor has said it is safe to leave. If you tested positive this will mean staying isolated until both of the following are true: At least 7 days have passed since the start of illness. You are free of fever for at least 72 hours without the use of medicine. During this time: - Avoid public areas, events, or transportation. Do not return to work or school until your doctor has said it is safe to do so. - Call ahead if you need to go to a medical center. Let them know you may have COVID-19. It will help them guide you where to go. They may also ask you to wear a facemask when you come to the office. - If you call for emergency medical services, let them know you may have COVID- 19. While at home: - Try to avoid close contact with others. Stay about 6 feet away. - If possible, spend most of your time in a separate room from others. - Use a face mask if you will be in close contact with others such as sharing a room or vehicle. - Have someone wipe down common surfaces in the home. Use household boat detailer every day on areas like doorknobs, counters, or sinks. - Cough or sneeze into a tissue. Throw the tissue away right after use. If a tissue is not available, cough or sneeze into your elbow. - Wash your hands often. Wash them after sneezing or coughing. Use soap and wa ter and wash for at least 20 seconds. Alcohol based hand machinery cleaner can be used if soap and water is not available. - Do not prepare food for others. Avoid sharing personal items like forks, spoons, or toothbrushes. - Avoid close contact with pets while you are sick. There is no evidence of the virus passing to pets. This is a safety step until more is known about this virus. Isolation can be frustrating. Social interaction can help. Keep in touch with friends and family through phone and tech options. You can still interact with others in your home, just keep a safe distance of about 6 feet. Follow-up: Your doctors office will check in with you to see if there are any changes in your health. You may be asked to keep track of symptoms to share with them. They will also let you know when you are clear to be in public again. Problems to Look Out For: Contact your doctor if your recovery is not going as you expect. Get emergency care if you have problems such as: - Trouble breathing - Nonstop chest pain or pressure - Changes in awareness, confusion, or problems waking - Lips or face have bluish color - Worsening of symptoms If you think you have an emergency, call for emergency medical services right away. As taken from [facility] Scripts Azithromycin (AZITHROMYCIN TABLET) 250 Mg Tablet 1 PKG PO UD for 5 Days, #6 TAB 0 Refills 2 the first day followed by 1 for days 2-5 Prov: XENA SOLANO APRN 08/08/20 Methylprednisolone (MEDROL) 4 Mg Tab.ds.pk 1 PKG PO UD, #1 PKG Prov: XENA SOLANO APRN 08/08/20 Justicifation of Admission Dx: Justifications for Admission: Justification of Admission Dx: N/A XENA SOLANO APRN Aug 08, 2020 12:10
[2020-08-08 12:47] LABS: BASO % 1 % (0-3); EOS # 0.1 x10^3/uL (0.0-0.7); EOS % 3 % (0-3); HEMATOCRIT 43.4 % (39.0-53.0); HEMOGLOBIN 14.8 g/dL (13.0-17.5); LYMPH # 1.4 x10^3/uL (1.0-4.8); LYMPH % 39 % (24-48); MEAN CORPUSCULAR HEMOGLOBIN 32 pg (25-35); MEAN CORPUSCULAR HGB CONC 34 g/dL (31-37); MEAN CORPUSCULAR VOLUME 94 fL (79-100); MONO # 0.5 x10^3/uL (0.0-1.1); MONO % 13 % (0-9); NEUT # 1.6 x10^3/uL (1.8-7.7); NEUT % 43 % (31-73); PLATELET COUNT 171 x10^3/uL (140-400); RED BLOOD COUNT 4.61 x10^6/uL (4.30-5.70); RED CELL DISTRIBUTION WIDTH 14.3 % (11.5-14.5); WHITE BLOOD COUNT 3.7 x10^3/uL (4.0-11.0)
[2020-08-08 12:52] LABS: CALCIUM 8.7 mg/dL (8.5-10.1); CREATININE 1.4 mg/dL (0.7-1.3); GFR 48.9
[2020-08-08 12:57] LABS: PROTHROMBIN TIME PATIENT 12.5 SEC (11.7-14.0)
[2020-08-08 12:58] LABS: ALBUMIN 3.9 g/dL (3.4-5.0); ALBUMIN/GLOBULIN RATIO 1.3 (1.0-1.7); TOTAL BILIRUBIN 0.6 mg/dL (0.2-1.0)
--- NOTE | 2020-08-08 13:06 | RAD ---
INDICATION: Reason: cough / Spl. Instructions: / History: COMPARISON: March 2019 FINDINGS: Single view of chest obtained. Cardiac silhouette is similar to prior with calcific atherosclerosis and tortuous aortic contour. Degenerative changes of the bilateral shoulders. No definite focal airspace consolidation or pulmonary edema. IMPRESSION: * No focal airspace consolidation. Electronically signed by: Jefferson Mcdonnell MD (08/08/2020 1:03 PM) [id number]
[2020-08-08] MEDS ORDERED: METH4TAB2 PO (14:00)
[2020-08-08] MEDS ORDERED: AZIT250T6 PO (14:00)
[2020-08-08] MEDS ORDERED: IV NORMAL SALINE 500ML BAG 500 ML IV ONE (14:00)
[2020-08-08 14:10] VITALS: BP 125/84
--- NOTE | 2020-08-08 16:31 | EKG ---
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
--- NOTE | 2020-08-10 12:21 | NUR ---
IP: Attempted to contact pt of COVID results, no answer. left voicemail for a return call.
--- NOTE | 2020-08-10 16:23 | NUR ---
IP: Informed pt of positive COVID test. too is positive. Answered all his questions. Pt verbalized understanding.
== END 2020-08-08 14:42 | disposition home or self-care (01) ==
LOC: ER 11:22
DX: U07.1 COVID-19 (principal); R09.81 Nasal congestion; R53.83 Other fatigue; R51 Headache; E78.00 Pure hypercholesterolemia, unspecified; I10 Essential (primary) hypertension; Z98.890 Other specified postprocedural states
CPT/HCPCS: 36415; 71045; 80053; 83690; 83880; 84484; 85025; 85610; 93005; 96360; 99285; C9803; J7040; U0003

== ENCOUNTER 2020-11-14 12:06 | Emergency (ER) | payer MEDICARE ==
[~2020-11-14] VITALS: Ht 172.7 cm; Wt 170.0 kg
[~2020-11-14 12:06] MED LIST changes: +AZIT250T6 PO; +METH4TAB2 PO
--- NOTE | 2020-11-14 14:17 | RAD ---
XR CHEST 1V CLINICAL INDICATIONS: dizzy,left arm tingling COMPARISON: August 08, 2020. Findings: No acute lung infiltrate or pleural effusion or pulmonary edema or lung mass or pneumothora x is seen. The heart size, pulmonary vasculature, mediastinum and both jurgen are unremarkable. IMPRESSION: No acute radiographic abnormality is seen. Electronically signed by: Sarabjit Menezes MD (11/14/2020 2:14 PM) [id number]
--- NOTE | 2020-11-14 14:32 | EKG ---
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
[2020-11-14 14:34] LABS: BASO # 0.1 x10^3/uL (0.0-0.2); BASO % 1 % (0-3); EOS # 0.1 x10^3/uL (0.0-0.7); EOS % 2 % (0-3); HEMATOCRIT 40.1 % (39.0-53.0); HEMOGLOBIN 13.8 g/dL (13.0-17.5); LYMPH # 1.4 x10^3/uL (1.0-4.8); LYMPH % 23 % (24-48); MEAN CORPUSCULAR HEMOGLOBIN 33 pg (25-35); MEAN CORPUSCULAR HGB CONC 34 g/dL (31-37); MEAN CORPUSCULAR VOLUME 96 fL (79-100); MONO # 0.6 x10^3/uL (0.0-1.1); MONO % 11 % (0-9); NEUT # 3.8 x10^3/uL (1.8-7.7); NEUT % 64 % (31-73); PLATELET COUNT 188 x10^3/uL (140-400); RED BLOOD COUNT 4.19 x10^6/uL (4.30-5.70); RED CELL DISTRIBUTION WIDTH 14.8 % (11.5-14.5); WHITE BLOOD COUNT 5.9 x10^3/uL (4.0-11.0)
[2020-11-14 14:35] LABS: BILIRUBIN,URINE NEGATIVE (NEG); CLARITY,URINE CLEAR; COLOR,URINE YELLOW; NITRITE,URINE NEGATIVE (NEG); PH,URINE 5.5 (<5.0-8.0); PROTEIN,URINE NEGATIVE (NEG-TRACE); UROBILINOGEN,URINE 0.2 mg/dL (0.2 mg/dL)
[2020-11-14 14:41] LABS: BACTERIA,URINE 0 /HPF (0-FEW); RBC,URINE 0 /HPF (0-2); WBC,URINE 0 /HPF (0-4)
[2020-11-14 14:46] LABS: CALCIUM 8.8 mg/dL (8.5-10.1); CREATININE 0.9 mg/dL (0.7-1.3); GFR 81.2; POTASSIUM 4.2 mmol/L (3.5-5.1)
[2020-11-14 14:54] LABS: ALBUMIN 3.8 g/dL (3.4-5.0); ALBUMIN/GLOBULIN RATIO 1.3 (1.0-1.7); TOTAL BILIRUBIN 0.6 mg/dL (0.2-1.0); TOTAL PROTEIN 6.7 g/dL (6.4-8.2)
[2020-11-14 15:15] VITALS: BP 142/89
[2020-11-14] MEDS ORDERED: MECLIZINE HCL 12.5 MG TABLET. PO ONE (15:15)
[2020-11-14] MEDS ORDERED: CETIRIZINE HCL 10 MG TABLET. PO ONE (15:15)
--- NOTE | 2020-11-14 15:31 | RAD ---
EXAMINATION: CT HEAD/BRAIN WO (CT HEAD WITHOUT IV CONTRAST) CLINICAL HISTORY: Dizziness, arm numbness x 3 days TECHNIQUE: Serial axial images without IV contrast were obtained from the vertex to the foramen magnu m. CT Dose Reduction Employed: One or more of the following individualized dose reduction techniques wer e utilized for this examination: 1. Automated exposure control 2. Adjustment of the mA and/or kV ac cording to patient size 3. Use of iterative reconstruction technique. COMPARISON: 03/23/2019 FINDINGS: Post-operative Change: None. Acute Change: No evidence of an acute infarct or other acute parenchymal process. Hemorrhage: No evidence of acute intracranial hemorrhage. Mass Lesion/Mass Effect: No evidence of intracranial mass or extraaxial fluid collection. No signific ant mass effect. Chronic Change: Scattered patchy foci of hypoattenuation in the supratentorial white matter, nonspeci fic but likely represents mild microvascular ischemia. Atherosclerotic calcification of the anterior and posterior circulation. Parenchyma: Moderate generalized volume loss. Parenchyma otherwise within normal limits for age. Ventricles: Ventricular enlargement concordant with degree of parenchymal volume loss. Paranasal Sinuses and Skull Base: Visualized paranasal sinuses clear. Visualized skull base and soft tissues unremarkable. IMPRESSION: No evidence of acute intracranial abnormality or significant interval change. Electronically signed by: Twin Yousif DO (11/14/2020 3:28 PM) [facility]
[2020-11-14] MEDS ORDERED: MECL-75 PO (16:17)
[2020-11-14] MEDS ORDERED: CETI10TA74 PO (16:17)
--- NOTE | 2020-11-14 16:20 | ED.ADGEN ---
Past Medical History Past Medical History: CVA, GERD, Hypertension Additional Past Medical Histor: TREMORS, STROKE x 2 (L side) Past Surgical History: Appendectomy, Tonsillectomy, Other Additional Past Surgical Histo: ABDOMINAL MASS Smoking Status: Never Smoker Additional Information: USED TO CHEW TOBACCO Alcohol Use: Occasionally Drug Use: None General Adult EDM: Chief Complaint: DIZZY/LIGHT HEADED HPI: HPI: Patient is a 80 year old male who presents to the Emergency Room complaining of dizziness that started this morning. Patient states that he was having to hold onto the wall because of that. He feels better at rest. He states he has chronic numbness in left arm which he felt has been worse x 3 days. He denies any chest pain, shortness of breath, abd pain, nausea, vomiting, fever, chills, sweats. He has never had dizziness previously. He states that he has had a fullness in his right ear for the last several days. Dizziness is worse with movement. Review of Systems: Review of Systems: Complete ROS is negative unless otherwise documented in HPI Current Medications: Current Medications Medications (Trade) Dose Ordered Sig/Lucy Start Time Stop Time Status Last Admin Dose Admin Cetirizine HCl (ZyrTEC) 10 mg 1X ONCE 11/14/20 15:15 11/14/20 15:16 DC 11/14/20 15:26 10 MG Meclizine HCl (Antivert) 25 mg 1X ONCE 11/14/20 15:15 11/14/20 15:16 DC 11/14/20 15:25 25 MG Allergies: Allergies: Allergies Coded Allergies Type Severity Reaction Last Updated Verified No Known Drug Allergies 10/20/18 No Physical Exam: PE: General: Awake, alert, NAD. Well Nourished, well hydrated. Cooperative HEENT: Atraumatic, EOMI, PERRL, airway patent, moist oral mucosa Neck: Supple, trachea midline Respiratory: CTA bilaterally, normal effort, no wheezing/crackles CV: RRR, no murmur, cap refill <2 GI: Soft, nondistended, nontender, no masses MSK: No obvious deformities Skin: Warm, dry, intact Neuro: A&O x3, speech NL, sensory and motor grossly intact, no focal deficits Psych: Normal affect, normal mood, not suicidal or homicidal Current Patient Data: Labs: Laboratory Tests Test 11/14/20 14:22 1/5/21 14:25 White Blood Count 5.9 x10^3/uL (4.0-11.0) Red Blood Count 4.19 x10^6/uL (4.30-5.70) L Hemoglobin 13.8 g/dL (13.0-17.5) Hematocrit 40.1 % (39.0-53.0) Mean Corpuscular Volume 96 fL (79-100) Mean Corpuscular Hemoglobin 33 pg (25-35) Mean Corpuscular Hemoglobin Concent 34 g/dL (31-37) Red Cell Distribution Width 14.8 % (11.5-14.5) H Platelet Count 188 x10^3/uL (140-400) Neutrophils (%) (Auto) 64 % (31-73) Lymphocytes (%) (Auto) 23 % (24-48) L Monocytes (%) (Auto) 11 % (0-9) H Eosinophils (%) (Auto) 2 % (0-3) Basophils (%) (Auto) 1 % (0-3) Neutrophils # (Auto) 3.8 x10^3/uL (1.8-7.7) Lymphocytes # (Auto) 1.4 x10^3/uL (1.0-4.8) Monocytes # (Auto) 0.6 x10^3/uL (0.0-1.1) Eosinophils # (Auto) 0.1 x10^3/uL (0.0-0.7) Basophils # (Auto) 0.1 x10^3/uL (0.0-0.2) Sodium Level 142 mmol/L (136-145) Potassium Level 4.2 mmol/L (3.5-5.1) Chloride Level 106 mmol/L (98-107) Carbon Dioxide Level 25 mmol/L (21-32) Anion Gap 11 (6-14) Blood Urea Nitrogen 10 mg/dL (8-26) Creatinine 0.9 mg/dL (0.7-1.3) Estimated GFR (Cockcroft-Gault) 81.2 BUN/Creatinine Ratio 11 (6-20) Glucose Level 101 mg/dL (70-99) H Calcium Level 8.8 mg/dL (8.5-10.1) Total Bilirubin 0.6 mg/dL (0.2-1.0) Aspartate Amino Transferase (AST) 18 U/L (15-37) Alanine Aminotransferase (ALT) 22 U/L (16-63) Alkaline Phosphatase 94 U/L (46-116) Troponin I Quantitative < 0.017 ng/mL (0.000-0.055) Total Protein 6.7 g/dL (6.4-8.2) Albumin 3.8 g/dL (3.4-5.0) Albumin/Globulin Ratio 1.3 (1.0-1.7) Urine Collection Type Unknown Urine Color Yellow Urine Clarity Clear Urine pH 5.5 (<5.0-8.0) Urine Specific Lyons 1.015 (1.000-1.030) Urine Protein Negative mg/dL (NEG-TRACE) Urine Glucose (UA) Negative mg/dL (NEG) Urine Ketones (Stick) Trace mg/dL (NEG) Urine Blood Negative (NEG) Urine Nitrite Negative (NEG) Urine Bilirubin Negative (NEG) Urine Urobilinogen Dipstick 0.2 mg/dL (0.2 mg/dL) Urine Leukocyte Esterase Negative (NEG) Urine RBC 0 /HPF (0-2) Urine WBC 0 /HPF (0-4) Urine Bacteria 0 /HPF (0-FEW) Urine Mucus Slight /LPF Laboratory Tests 11/14/20 14:22 Laboratory Tests 11/14/20 14:22 Vital Signs: Vital Signs Date Time Temp Pulse Resp B/P (MAP) Pulse Ox O2 Delivery O2 Flow Rate FiO2 11/14/20 13:45 98.9 79 20 113/74 (87) 96 Room Air 98.9 EKG: EKG: [] Heart Score: Risk Factors: Risk Factors: DM, Current or recent (<one month) smoker, HTN, HLP, family history of CAD, obesity. Risk Scores: Score 0 - 3: 2.5% MACE over next 6 weeks - Discharge Home Score 4 - 6: 20.3% MACE over next 6 weeks - Admit for Clinical Observation Score 7 - 10: 72.7% MACE over next 6 weeks - Early Invasive Strategies Radiology/Procedures: Radiology/Procedures: [] Course & Med Decision Making: Course & Med Decision Making Pertinent Labs and Imaging studies reviewed. (See chart for details) Patient is an 80-year-old male who presents to the emergency room complaining of dizziness and worsening numbness in his left arm. CT head was done to rule out a subacute stroke as his numbness has been ongoing for quite some time. CT is negative. Lab work is unremarkable. EKG is normal. Patient does not have any chest pain. He was given meclizine and Zyrtec with resolution of symptoms. Patient's test results and vitals while in the ED were fully reviewed and discussed with the patient. Patient is stable and at this time does not need admission to the hospital. We have discussed strict return precautions and the importance of following up with their Primary Care Physician. Patient stated understanding and was given an opportunity to ask any questions. Patient is in agreement with plan. Dragon Disclaimer: Dragon Disclaimer: This electronic medical record was generated, in whole or in part, using a voice recognition dictation system. Departure Departure Impression: Primary Impression: Vertigo Disposition: 01 DC HOME SELF CARE/HOMELESS Condition: STABLE Referrals: MARTY NG (PCP) Patient Instructions: Vertigo Scripts Cetirizine Hcl (ZYRTEC) 10 Mg Tablet 1 TAB PO DAILY, #30 TAB 2 Refills Prov: BIJAN CRÁDENAS MD 11/14/20 Meclizine Hcl (MECLIZINE HCL) 25 Mg Tablet 1 TAB PO TID for dizziness, #20 TAB Prov: BJIAN CÁRDENAS MD 11/14/20 BIJAN CÁRDENAS MD Nov 14, 2020 16:20
== END 2020-11-14 16:51 | disposition home or self-care (01) ==
LOC: ER 12:06
DX: R42 Dizziness and giddiness (principal); R20.0 Anesthesia of skin; K21.9 Gastro-esophageal reflux disease without esophagitis; I10 Essential (primary) hypertension; Z86.73 Personal history of transient ischemic attack (TIA), and cerebral infarction without residual deficits; F17.223 Nicotine dependence, chewing tobacco, with withdrawal
CPT/HCPCS: 36415; 70450; 71045; 80053; 81001; 84484; 85025; 93005; 99285; J8597

== ENCOUNTER 2021-02-06 10:37 | Emergency (ER) | payer MEDICARE ==
[~2021-02-06] VITALS: Ht 172.7 cm; Wt 81.8 kg
[~2021-02-06 10:37] MED LIST changes: +CETI10TA74 PO
--- NOTE | 2021-02-06 12:02 | RAD ---
Left knee 3 views COMPARISON: None. FINDINGS: There is mild cortical irregularity on the anterior weightbearing surface of the medial femoral condy le and the patella with minimal osteophytic spurring of the superior and inferior poles. No fracture or malalignment. There is minimal suprapatellar soft tissue fullness that could represent a trace danielle nt effusion. No loose body. Arterial calcifications. 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 No fracture or malali gnment shown. Electronically signed by: Dhiraj Crespo MD (02/06/2021 12:00 PM) [id number]
[2021-02-06 12:20] VITALS: BP 137/71
[2021-02-06] MEDS ORDERED: HYDR-2761 PO ×2 (12:34→12:41)
--- NOTE | 2021-02-06 12:35 | ED.ADGEN ---
Past Medical History Past Medical History: CVA, GERD, Hypertension, Other Additional Past Medical Histor: TREMORS,STROKE x 2 (L side),COVID-19:09/2020 Past Surgical History: Appendectomy, Tonsillectomy, Other Additional Past Surgical Histo: ABDOMINAL MASS,BOWEL RESECTION Smoking Status: Never Smoker Alcohol Use: Occasionally Drug Use: None General Adult EDM: Chief Complaint: LOWER EXT PAIN HPI: HPI: Patient is a 80 year old male, accompanied by his , who presents emergency department with complaints of left anterior knee pain for the last week. Patient reports that he felt a pop in it and has had pain ever since. He denies any fall or known injury. Patient states that the pain increases when he is weightbearing and when he moves his knee. He denies any numbness, tingling, or weakness of the affected extremity. He states that his left knee has been a little swollen. He currently rates pain a 5 out of 10 on pain scale while he is at rest. He states that the pain increases to at least a 10 if he stands. Review of Systems: Review of Systems: Complete ROS is negative unless otherwise noted in HPI. Allergies: Allergies: Allergies Coded Allergies Type Severity Reaction Last Updated Verified No Known Drug Allergies 10/20/18 No Physical Exam: PE: See Above Constitutional: Well developed, well nourished, no acute distress, non-toxic appearance. [] HENT: Normocephalic, atraumatic, bilateral external ears normal, nose normal. [] Eyes: PERRLA, EOMI, conjunctiva normal, no discharge. [] Neck: Normal range of motion, no stridor. [] Cardiovascular:Heart rate regular rhythm Lungs & Thorax: Respirations even and unlabored, no retractions, no respiratory distress Skin: Warm, dry, no erythema, no rash. [] Extremities: Left knee: Anterior tenderness to palpation with 1+ edema, no crepitus, negative anterior/posterior drawer testing, no cyanosis Neurologic: Alert and oriented X 3, normal sensation, normal motor, no focal deficits noted. [] Psychologic: Affect normal, judgement normal, mood normal. [] Current Patient Data: Vital Signs: Vital Signs Date Time Temp Pulse Resp B/P (MAP) Pulse Ox O2 Delivery O2 Flow Rate FiO2 02/06/21 12:20 60 137/71 (93) 95 Room Air 02/06/21 10:42 97.4 20 97.4 EKG: EKG: [] Heart Score: C/O Chest Pain: No Risk Scores: Score 0 - 3: 2.5% MACE over next 6 weeks - Discharge Home Score 4 - 6: 20.3% MACE over next 6 weeks - Admit for Clinical Observation Score 7 - 10: 72.7% MACE over next 6 weeks - Early Invasive Strategies Radiology/Procedures: Radiology/Procedures: PROCEDURE: KNEE LEFT 3V Left knee 3 views COMPARISON: None. FINDINGS: There is mild cortical irregularity on the anterior weightbearing surface of the medial femoral condyle and the patella with minimal osteophytic spurring of the superior and inferior poles. No fracture or malalignment. There is minimal suprapatellar soft tissue fullness that could represent a trace joint effusion. No loose body. Arterial calcifications. 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 No fracture or malalignment shown. Electronically signed by: Dhiraj Crespo MD (02/06/2021 12:00 PM) [id number] [] Course & Med Decision Making: Course & Med Decision Making Pertinent Labs and Imaging studies reviewed. (See chart for details) [] Dragon Disclaimer: Dragon Disclaimer: This electronic medical record was generated, in whole or in part, using a voice recognition dictation system. Departure Departure Impression: Primary Impression: Chondromalacia of knee Additional Impression: Left anterior knee pain Disposition: 01 DC HOME SELF CARE/HOMELESS Condition: STABLE Referrals: BENNETT PIERRE MD Patient Instructions: Chondromalacia, Knee Pain, Onkh-ox-Eifl Additional Instructions: Fill prescription(s) and use as directed. Recommend application of ice, elevation, and rest of affected extremity. Wear the splint that was placed until follow up appointment. Follow up with Dr. Pierre for further evaluation in 1-2 days. Return to the ER if your symptoms worsen. Scripts Hydrocodone Bit/Acetaminophen (HYDROCODONE-APAP 5-325 ) 1 Tab Tablet 0.5-1 TAB PO PRN Q6HRS PRN for SEVERE PAIN 7-10, #10 TAB 0 Refills Prov: EMILIO CHAVIS DIESEL DINKEY ENGINEER 02/06/21 Problem Qualifiers Primary Impression: Chondromalacia of knee Laterality: left Qualified Codes: M94.262 - Chondromalacia, left knee EMILIO CHAVIS APRN Feb 06, 2021 12:35
== END 2021-02-06 12:59 | disposition home or self-care (01) ==
LOC: ER 10:37
DX: M94.262 Chondromalacia, left knee (principal); R60.0 Localized edema; I10 Essential (primary) hypertension; K21.9 Gastro-esophageal reflux disease without esophagitis; Z90.89 Acquired absence of other organs; Z98.890 Other specified postprocedural states; Z86.73 Personal history of transient ischemic attack (TIA), and cerebral infarction without residual deficits
CPT/HCPCS: 73562; 99283

== ENCOUNTER 2021-09-12 10:37 | Emergency (ER) | payer MEDICARE ==
[~2021-09-12] VITALS: Ht 172.7 cm; Wt 78.0 kg
[~2021-09-12 10:37] MED LIST changes: -LEVO250T7 PO; +LEVO250T8 PO; -LEVO500T8 PO; +LEVO500T9 PO
[2021-09-12 10:59] VITALS: BP 140/76
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
[2021-09-12] MEDS ORDERED: HYDROcodone/APAP 5/325MG 1 TAB TABLET PO ONE (11:30)
--- NOTE | 2021-09-12 11:38 | RAD ---
XR SHOULDER_LEFT 2+ VIEWS Clinical indications: Reason: pain/injury / Spl. Instructions: / History: Findings: No acute fracture or dislocation or osteolytic process is evident. Mild degenerative osteo arthritis of the glenohumeral joint and AC joint is seen. No AC joint separation is seen. IMPRESSION: No acute osseous abnormality is evident. Electronically signed by: Sarabjit Menezes MD (09/12/2021 11:35 AM) [id number]
[2021-09-12] MEDS ORDERED: HYDR-2761 PO (11:43)
== END 2021-09-12 12:14 | disposition home or self-care (01) ==
LOC: ER 12:06
DX: S40.012A Contusion of left shoulder, initial encounter (principal); I10 Essential (primary) hypertension; K21.9 Gastro-esophageal reflux disease without esophagitis; Z86.73 Personal history of transient ischemic attack (TIA), and cerebral infarction without residual deficits; W22.8XXA Striking against or struck by other objects, initial encounter; Y93.89 Activity, other specified; Y92.89 Other specified places as the place of occurrence of the external cause; Y99.8 Other external cause status
CPT/HCPCS: 73030; 99283

== ENCOUNTER → 2021-09-26 | Outpatient (CLI) | payer MEDICARE ==
[2021-09-12 10:59] VITALS: BP 140/76
--- NOTE | 2021-09-26 11:52 | KCIC ---
STUDY: MRI of the left shoulder without contrast INDICATION: Left shoulder pain. COMPARISON: No prior MRI. Left shoulder radiographs 09/12/2021. TECHNIQUE: Multiplanar MR imaging of the left shoulder performed without the use of intravenous or in tra-articular contrast. FINDINGS: Very limited study secondary to motion despite repeat sequence acquisition. AC joint: Moderate arthrosis. No significant fluid distention of the subacromial subdeltoid bursa. Rotator cuff: Low to intermediate grade articular sided tearing of the mid to posterior supraspinatus to the far anterior infraspinatus at the footprint with involvement of between 25 and 50%tendon cros s-sectional thickness. The region of tearing extends in the AP dimension by approximately 21 mm and m easures up to 6 mm mediolateral. Background supraspinatus and infraspinatus tendinosis. Intact teres minor. Subscapularis tendinosis without a fluid signal tear defect. Supraspinatus, infraspinatus and subscapularis muscular edema primarily along the deep margin, image 23 series 6. Mild teres minor alvaro ma as well. Bulk is maintained. Labrum: Multifocal degenerative tearing. Associated small paralabral cysts such as seen anterior/infe rior on image 12 series 12. Long head biceps tendon: Grossly intact and normally located. Cartilage: Extensive glenoid chondrosis which is difficult to visualize but implied by subchondral cy stic change. Poorly characterized medial humeral head chondrosis as well. Uncertain chondral integrit y at the superior humeral head. Bones: Moderate glenohumeral joint arthrosis with osteophytic proliferation and glenoid subchondral c ystic change. Mild reactive marrow edema deep to the supraspinatus tear. Miscellaneous: No significant glenohumeral joint effusion. No soft tissue abnormality at the axilla. Impression: 1. Significantly limited study secondary to motion with loss of diagnostic utility. 2. Supraspinatus and infraspinatus tendinosis with superimposed low to intermediate grade articular sided tearing of the mid to posterior supraspinatus and anterior infraspinatus at the footprint. Kaelyn mated between 25 and 50% cross-sectional tendon involvement. Subscapularis tendinosis without a discr ete tear. Intact teres minor. Muscular bulk is maintained but there is edema primarily along the inne r margin of the rotator cuff muscles. The muscular edema could be in part from subacute denervation b ut is nonspecific. 3. Multifocal degenerative tearing of the labrum on a background of moderate glenohumeral joint arth rosis with prominent glenoid subchondral cystic change. The long head biceps is normally located and grossly intact noting motion. 4. Moderate arthrosis at the AC joint. Electronically signed by: LETICIA THAPA MD (09/26/2021 11:49 AM) [id number]
== END ==
LOC: KCIC MRI 09:29
PROVIDERS: ATTEND Family Medicine
DX: M19.012 Primary osteoarthritis, left shoulder (principal); M75.102 Unspecified rotator cuff tear or rupture of left shoulder, not specified as traumatic
CPT/HCPCS: 73221

== ENCOUNTER → 2021-12-05 | Outpatient (CLI) | payer MEDICARE ==
--- NOTE | 2021-12-05 12:22 | RAD ---
EXAM: Pelvis and left hip, 2 views. HISTORY: Pain. COMPARISON: None. FINDINGS: A frontal view of the pelvis and frog-leg view of the left hip are obtained. There is no fr acture, dislocation or subluxation. There is mild marginal acetabular and femoral head spurring. Ther e is degenerative change at the lumbosacral junction. IMPRESSION: No acute osseous finding. Mild bilateral hip osteoarthritis. Electronically signed by: Blanche Jiménez MD (12/05/2021 12:20 PM) [id number]
== END ==
LOC: RAD 11:49
PROVIDERS: ATTEND Family Medicine
DX: M16.0 Bilateral primary osteoarthritis of hip (principal); M76.892 Other specified enthesopathies of left lower limb, excluding foot; M47.817 Spondylosis without myelopathy or radiculopathy, lumbosacral region
CPT/HCPCS: 73502